=== PATIENT | female | born 1950 | race Caucasian/White ===

== ENCOUNTER 2016-12-15 05:46 | Day surgery (SDC) | payer MEDICARE ==
[2016-12-15] MEDS ORDERED: DIPRIVAN 200 MG/20 ML IV ONE (05:47)
[2016-12-15] MEDS ORDERED: Ketamine HCl 50 MG/ML IV ONE (05:47)
[2016-12-15] MEDS ORDERED: Lactated Ringers 1,000 ML IV SCH (06:30)
[2016-12-15 09:36] VITALS: BP 116/72; PULSE 77; O2SAT 98
--- NOTE | 2016-12-15 10:46 | OP ---
SURGERY DATE/TIME: 12/15/2016722 PREOPERATIVE DIAGNOSIS: History of colon polyps. POSTOPERATIVE DIAGNOSIS: Two colon polyps. PROCEDURE: Colonoscopy. SURGEON: Joaquin Ibarra M.D. ANESTHESIA: MAC by Keshawn Douglas CRNA. ESTIMATED BLOOD LOSS: Minimal. SPECIMENS: Two hot forceps polypectomies. DESCRIPTION OF PROCEDURE: After informed written consent was obtained, the patient was taken to the endoscopy suite. She underwent monitored anesthesia and digital rectal exam showed normal sphincter tone and no internal lesions. The scope was inserted into the rectum and sequentially the entire colonic mucosa was traversed. The level of cecum was reached and verified with direct visualization of ileocecal valve. There was a sessile polyp in the ascending colon which was grasped with forceps and cauterized with complete removal with good hemostasis. There were scattered diverticula throughout most of the length of the colon. There was another sessile polyp in the proximal sigmoid colon which was also removed with hot forceps in its entirety with good hemostasis and complete removal. The remainder of the exam was unremarkable. The scope was removed and the patient was transferred to the recovery room in excellent condition.
== END 2016-12-15 09:20 | disposition home or self-care (01) ==
LOC: SDC 05:46 → EDSTATUS 13:55
PROVIDERS: ATTEND Family Medicine
PROC: 0DBK8ZX Excision of Ascending Colon, Via Natural or Artificial Opening Endoscopic, Diagnostic (ICD-10-PCS; principal; 2016-12-15)
PROC: 0DBN8ZX Excision of Sigmoid Colon, Via Natural or Artificial Opening Endoscopic, Diagnostic (ICD-10-PCS; 2016-12-15)
DX: K63.5 Polyp of colon (principal); Z86.010 Personal history of colon polyps
CPT/HCPCS: 00810; 36415; J2704

== ENCOUNTER 2017-04-19 00:14 | Emergency (ER) | payer MEDICARE ==
[2017-04-19] MEDS ORDERED: PROVENTIL 2.5 MG/3 ML NEB IH ONE ×2 (00:18→00:43)
[2017-04-19] MEDS ORDERED: Ativan 2 MG/1 ML VIAL ONE ×2 (00:19→01:48)
[2017-04-19] MEDS ORDERED: Ativan 2 MG/1 ML VIAL IV ONE ×3 (00:20→02:52)
[2017-04-19] MEDS ORDERED: Lasix 40 MG/4 ML IV ONE (00:24)
[2017-04-19] MEDS ORDERED: Furosemide 100mg/10 ml Vial ONE (00:25)
--- NOTE | 2017-04-19 00:31 | ERPHSYRPT ---
- History of Present Illness Time Seen by Provider: 04/19/17 00:20 Source: patient, EMS Exam Limitations: no limitations Patient Subjective Stated Complaint: c/o SOA x 2 days Triage Nursing Assessment: pt c/o SOA, wheezes throughout, anxious. Physician History: 66 y/o female with history of COPD and CHF brought in by ambulance for worsening shortness of breath for the past 2 days. Pt arrives to the ER in severe respiratory distress. Pt was immediately placed on bibap which has helped. Pt says that she does not want to be intubated. Pt states that she has not taken her medications over the past couple of days, including lasix. Pt also admits to having substernal chest pain that started this evening, tightness sensation, with radiation to back and lasting for 5 minutes. Timing/Duration: day(s) Activities at Onset: none Severity of Dyspnea-Max: severe Severity of Dyspnea-Current: severe Possible Cause: frequent episodes Modifying Factors: Improves With: nothing Associated Symptoms: anxiety, chest pain/discomfort, productive cough International travel in last 2 weeks: No Allergies/Adverse Reactions: Tetanus Vaccines and Toxoid [Tetanus] Allergy (Severe, Verified 12/15/16 06:18) throat swelling Home Medications: Albuterol Sulfate Mdi [Proair Hfa MDI] 8.5 gm IH Q4HWA PRN 11/19/11 [ History] Albuterol/Ipratropium 3ml Neb* [DUONEB 0.5-3 MG/3 ml Neb] 3 ml IH Q4H [History] Atorvastatin Calcium [Lipitor] 40 mg PO HS 11/19/11 [History] Calcium Citrate/Vitamin D3 [Citracal + D Caplet] 2 each PO BID 11/19/11 [History ] Carvedilol 6.25 mg [Coreg 6.25 MG] 12.5 mg PO BID 11/19/11 [History] Furosemide 40 mg PO DAILY 11/19/13 [History] Gabapentin 300 mg PO TID 11/19/13 [History] Multivitamin [Multi-Vitamin Daily] 1 tab PO DAILY 11/19/13 [History] Losartan Potassium 50 mg [Cozaar 50 MG] 1 tab PO DAILY 08/17/15 [History] Magnesium Oxide 400 mg [Mag-Ox 400] 1 tab PO DAILY 08/17/15 [History] Tiotropium [place] [Spiriva] 18 mcg IH DAILY 08/18/15 [History] Biotin 10,000 mcg PO DAILY 12/08/16 [History] Cholecalciferol (Vitamin D3) [Vitamin D3] 5,000 unit PO DAILY 12/08/16 [History] PANTOPRAZOLE 40 mg Tablet [Protonix 40MG Tablet] 40 mg PO DAILY 12/08/16 [ History] Potassium Chloride 10 Meq Tab* [Klor Con 10 MEQ] 10 meq PO BID 12/08/16 [ History] Hydrocodone Bit/Homatropine [Hydrocodone Compound Syrup] 480 ml PO Q12H PRN PRN 12/15/16 [History] Nitroglycerin 2.5 mg [Nitro-Bid 2.5 mg] 2.5 mg PO DAILY 12/15/16 [History] Zoledronic Acid/Mannitol/Wate* [Reclast 5 MG/100 Ml Solution] 5 mg IV DAILY 12/15/16 [History] Cephalexin 500 mg PO TID 01/18/17 [History] Hx Tetanus, Diphtheria Vaccination/Date Given: Yes Hx Influenza Vaccination/Date Given: Yes (11/2013) Hx Pneumococcal Vaccination/Date Given: Yes (2013) Immunizations Up to Date: Yes - Review of Systems Constitutional: No Fever, No Chills Eyes: No Symptoms Ears, Nose, & Throat: No Symptoms Respiratory: Cough, Dyspnea, Dyspnea on Exertion (FIGUEREDO), Wheezing Cardiac: Chest Pain, Edema, No Syncope Abdominal/Gastrointestinal: No Abdominal Pain, No Nausea, No Vomiting, No Diarrhea Genitourinary Symptoms: No Dysuria Musculoskeletal: No Back Pain, No Neck Pain Skin: No Rash Neurological: No Dizziness, No Focal Weakness, No Sensory Changes Psychological: No Symptoms Endocrine: No Symptoms All Other Systems: Reviewed and Negative - Past Medical History Pertinent Past Medical History: Yes Neurological History: No Pertinent History ENT History: Cataracts Cardiac History: Angina, High Cholesterol, Hypertension Respiratory History: Asthma, COPD, Emphysema, Lung Cancer, Pneumonia Endocrine Medical History: No Pertinent History Musculoskeletal History: Arthritis, Fractures GI Medical History: GERD, Hemorrhoids, Polyps History: No Pertinent History Psycho-Social History: Anxiety Female Reproductive Disorders: No Pertinent History Other Medical History: frequent urination, bladder tie up x2 - Past Surgical History Past Surgical History: Yes Neuro Surgical History: No Pertinent History Cardiac: Cardiac Catheterization Respiratory: Lobectomy Gastrointestinal: Appendectomy Genitourinary: No Pertinent History Musculoskeletal: No Pertinent History Female Surgical History: Hysterectomy, Tubal Ligation Other Surgical History: states right upper lobe lung removed., right total knee replacement - Social History Smoking Status: Former smoker How long have you smoked: 40 years Exposure to second hand smoke: Yes Drug Use: none - Female History Hx Now: No - Nursing Vital Signs Nursing Vital Signs: Initial Vital Signs Temperature 97.5 F 04/19/17 00:33 Pulse Rate 120 H 04/19/17 00:33 Respiratory Rate 34 H 04/19/17 00:33 O2 Sat by Pulse Oximetry 9 L 04/19/17 00:33 Pain Scale Pain Intensity 4 - Physical Exam General Appearance: no apparent distress, alert Eye Exam: PERRL/EOMI Ears, Nose, Throat Exam: hearing grossly normal, normal ENT inspection Neck Exam: normal inspection, supple Respiratory Exam: respiratory distress, accessory muscle use, crackles/rales, wheezing Cardiovascular/Chest Exam: normal heart sounds, regular rate/rhythm Abdominal/Gastrointestinal Exam: soft, No tenderness, No distention, No mass Extremity Exam: non-tender, normal range of motion, normal inspection, no calf tenderness, no pedal edema Neurologic Exam: alert, oriented x 3, cooperative, 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 tested, sensation nml, No motor deficits Skin Exam: normal color, warm, No dry SpO2 Interpretation: normal SpO2: 99 - Course Nursing assessment & vital signs reviewed: Yes EKG Interpreted by Me: RATE (hr 105), Ischemic ST-T changes (ST depressions in leads V2, V3, V4) Ordered Tests: Active Orders 24 hr Category Date Time Status Commutator Repairer STAT Care 04/19/17 00:19 Active EKG-ER Only STAT Care 04/19/17 00:18 Active Herrera [Catheter-[place] Herrera] STAT Care 04/19/17 00:24 Active IV Insertion STAT Care 04/19/17 00:18 Active NPO (ED) STAT Care 04/19/17 00:18 Active CHEST 1 VIEW (PORTABLE) Stat Exams 04/19/17 00:16 Taken ARTERIAL BLOOD GASES Stat Lab 04/19/17 00:30 Completed BLOOD CULTURE Stat Lab 04/19/17 00:53 Received CBC W DIFF Stat Lab 04/19/17 00:25 Completed CMP Stat Lab 04/19/17 00:25 Completed Lactic Acid Stat Lab 04/19/17 00:30 Completed MAGNESIUM Stat Lab 04/19/17 00:25 Completed Manual Differential NC Stat Lab 04/19/17 00:25 Completed NT PRO BNP Stat Lab 04/19/17 00:25 Completed PROTIME WITH INR Stat Lab 04/19/17 00:25 Completed PTT Stat Lab 04/19/17 00:25 Completed TROPONIN Q3H Lab 04/19/17 00:25 Completed TROPONIN Q3H Lab 04/19/17 03:30 Ordered TROPONIN Q3H Lab 04/19/17 06:30 Ordered TROPONIN Q3H Lab 04/19/17 09:30 Ordered TROPONIN Q3H Lab 04/19/17 12:30 Ordered BiPap/CPAP Assessment STAT RT 04/19/17 00:18 Active Respiratory Nebulizer STAT RT 04/19/17 00:19 Completed Medication Summary Discontinued Medications Generic Name Dose Route Start Last Admin Trade Name Freq PRN Reason Stop Dose Admin Albuterol Sulfate 2.5 mg 04/19/17 00:18 04/19/17 00:45 Proventil 2.5 Mg/3 Ml Neb IH 04/19/17 00:19 2.5 mg STAT ONE Administration Albuterol Sulfate Confirm 04/19/17 00:43 Proventil 2.5 Mg/3 Ml Neb Administered 04/19/17 00:44 Dose 2.5 mg IH .STK-MED ONE Aspirin 324 mg 04/19/17 00:42 04/19/17 00:50 Baby Aspirin 81 Mg Chew PO 04/19/17 00:43 324 mg STAT ONE Administration Aspirin Confirm 04/19/17 00:52 Baby Aspirin 81 Mg Chew Administered 04/19/17 00:53 Dose 324 mg .ROUTE .STK-MED ONE Furosemide 60 mg 04/19/17 00:24 04/19/17 00:32 Lasix 40 Mg/4 Ml IV 04/19/17 00:25 60 mg STAT ONE Administration Furosemide Confirm 04/19/17 00:25 Furosemide 100mg/10 Ml Vial Administered 04/19/17 00:26 Dose 100 mg .ROUTE .STK-MED ONE Azithromycin 500 mg in 250 mls @ 250 mls/hr 04/19/17 01:28 04/19/17 01:51 Zithromax 500 Mg/ 250 Ml Nacl Premix IV 04/19/17 02:27 250 mls/hr STAT ONE Administration Azithromycin Confirm 04/19/17 01:35 Zithromax 500 Mg/ 250 Ml Nacl Premix Administered 04/19/17 01:36 Dose 500 mg in 250 mls @ ud IV .STK-MED ONE Lorazepam 0.5 mg 04/19/17 00:20 04/19/17 00:21 Ativan 2 Mg/1 Ml Vial IV 04/19/17 00:21 0.5 mg STAT ONE Administration Lorazepam Confirm 04/19/17 00:19 Ativan 2 Mg/1 Ml Vial Administered 04/19/17 00:20 Dose 2 mg .ROUTE .STK-MED ONE Lorazepam 0.5 mg 04/19/17 01:48 04/19/17 01:51 Ativan 2 Mg/1 Ml Vial IV 04/19/17 01:49 0.5 mg ONCE ONE Administration Lorazepam Confirm 04/19/17 01:48 Ativan 2 Mg/1 Ml Vial Administered 04/19/17 01:49 Dose 2 mg .ROUTE .STK-MED ONE Lorazepam 0.5 mg 04/19/17 02:52 04/19/17 02:56 Ativan 2 Mg/1 Ml Vial IV 04/19/17 02:53 0.5 mg STAT ONE Administration Lab/Rad Data: Laboratory Result Diagrams 04/19/17 00:25 04/19/17 00:25 Laboratory Results 04/19/17 04/19/17 04/19/17 Range/Units 00:58 00:30 00:25 WBC (4.0-10.5) K/mm3 RBC (4.1-5.4) M/mm3 Hgb (12.0-16.0) gm/dl Hct (35-47) % MCV (78-100) fl MCH (26-32) pg MCHC (32-36) g/dl RDW (11.5-14.0) % Plt Count (150-450) K/mm3 MPV (6-9.5) fl INR (0.8-3.0) APTT (25.3-37.0) SECONDS Puncture Site rr pCO2 54 H (35-45) mmHg pO2 379 H* (75-100) mmHg Base Excess 1.6 (-2.0-2.0) O2 Saturation 97.7 (94-100) g/dF ABG pH 7.33 L (7.35-7.45) ABG HCO3 28.5 H (22-28) ABG O2 Sat (Measured) 100.9 H (95-100) % Colt Test y A-a Gradient 267 a/A Ratio 0.59 Hemoglobin 12.5 Carboxyhemoglobin 1.9 (0.0-6.9) % THgb Methemoglobin 1.2 L (1.4-1.5) % Temperature 37.0 C POC O2 Flow Rate 100 % Vent Mode BiPAP Inspiratory BiPAP 11 Expiratory BiPAP 6 Sodium (136-145) mEq/L Potassium 3.4 L (3.5-5.1) mEq/L Chloride (98-107) mEq/L Carbon Dioxide (21-32) mEq/L Anion Gap (5-15) MEQ/L BUN (9-20) mg/dL Creatinine (0.55-1.30) mg/dl Estimated GFR ML/MIN Glucose (70-110) MG/DL Lactic Acid 0.7 (0.4-2.0) Calcium (8.5-10.1) mg/dL Magnesium (1.8-2.4) mg/dL Total Bilirubin (0.2-1.0) mg/dL AST (15-37) U/L ALT (12-78) U/L Alkaline Phosphatase (46-116) U/L Troponin I < 0.017 (0.000-0.056) ng/ml NT-Pro-B Natriuret Pep (0-125) pg/ml Serum Total Protein (6.4-8.2) gm/dL Albumin (3.4-5.0) g/dL Influenza Type A Ag NEGATIVE (NEGATIVE) Influenza Type B Ag NEGATIVE (NEGATIVE) RSV (PCR) POSITIVE (Negative) 04/19/17 04/19/17 04/19/17 Range/Units 00:25 00:25 00:25 WBC 21.4 H (4.0-10.5) K/mm3 RBC 4.19 (4.1-5.4) M/mm3 Hgb 12.4 (12.0-16.0) gm/dl Hct 38.5 (35-47) % MCV 91.9 (78-100) fl MCH 29.6 (26-32) pg MCHC 32.2 (32-36) g/dl RDW 13.6 (11.5-14.0) % Plt Count 317 (150-450) K/mm3 MPV 11.3 H (6-9.5) fl INR 1.24 (0.8-3.0) APTT 27.3 (25.3-37.0) SECONDS Puncture Site pCO2 (35-45) mmHg pO2 (75-100) mmHg Base Excess (-2.0-2.0) O2 Saturation (94-100) g/dF ABG pH (7.35-7.45) ABG HCO3 (22-28) ABG O2 Sat (Measured) (95-100) % Colt Test A-a Gradient a/A Ratio Hemoglobin Carboxyhemoglobin (0.0-6.9) % THgb Methemoglobin (1.4-1.5) % Temperature C POC O2 Flow Rate % Vent Mode Inspiratory BiPAP Expiratory BiPAP Sodium 145 (136-145) mEq/L Potassium 4.1 (3.5-5.1) mEq/L Chloride 105 (98-107) mEq/L Carbon Dioxide 28.8 (21-32) mEq/L Anion Gap 15.3 H (5-15) MEQ/L BUN 13 (9-20) mg/dL Creatinine 0.64 (0.55-1.30) mg/dl Estimated GFR > 60 ML/MIN Glucose 149 H (70-110) MG/DL Lactic Acid (0.4-2.0) Calcium 9.1 (8.5-10.1) mg/dL Magnesium 1.8 (1.8-2.4) mg/dL Total Bilirubin 1.10 H (0.2-1.0) mg/dL AST 22 (15-37) U/L ALT 26 (12-78) U/L Alkaline Phosphatase 85 (46-116) U/L Troponin I (0.000-0.056) ng/ml NT-Pro-B Natriuret Pep 316 H (0-125) pg/ml Serum Total Protein 8.0 (6.4-8.2) gm/dL Albumin 3.9 (3.4-5.0) g/dL Influenza Type A Ag (NEGATIVE) Influenza Type B Ag (NEGATIVE) RSV (PCR) (Negative) - Progress Progress: improved Air Movement: fair Progress Note: 04/19/17 02:43 The CXR shows increase vascular congestion. The patient has shown significant improvement since arriving to the ER after being placed on bipap. Pt was already given a dose of solumedrol 125mg in route and has received 3 doses of duonebs as well as lasix 60mg with herrera catheter insertion. Pt is RSV positive. Influenza is negative. Pt was started on azithromycin. Each time the mask is taken off, pt starts to decompensate. Pt also has ST depressions in leads V2-V4 but the first troponin was negative. Pt was given a dose of ASA. We don't have ICU staffing and the patient will require a higher level of care. Pt has agreed to be transferred to [facility] and will be transferred under the care of Dr Allen. 04/19/17 02:53 - Departure Time of Disposition: 02:52 Departure Disposition: Transfer Clinical Impression: Respiratory distress COPD (chronic obstructive pulmonary disease) Qualifiers: COPD type: unspecified COPD Qualified Code(s): J44.9 - Chronic obstructive pulmonary disease, unspecified CHF (congestive heart failure) Qualifiers: Heart failure type: systolic Heart failure chronicity: acute on chronic Qualified Code(s): I50.23 - Acute on chronic systolic (congestive) heart failure Condition: Critical Critical Care Time: Yes Critical Care Time(excluding separately billable procedures): 75-104 minutes Referrals: RIMA HAGAN [Primary Care Provider] - Instructions: Heart Failure, Chronic Obstructive Pulmonary Disease
[2017-04-19 00:37] LABS: A-aADO2 267; ABG HEMOGLOBIN 12.5; ABG POTASSIUM 3.4 (3.5-5.1); ARTERIAL BLD GAS O2 SATURATION 100.9 % (95-100); ARTERIAL BLOOD GAS BASE EXCESS 1.6 (-2.0-2.0); ARTERIAL BLOOD GAS FIO2 100 %; ARTERIAL BLOOD GAS PCO2 54 mmHg (35-45); ARTERIAL BLOOD GAS PO2 379 mmHg (75-100); ARTERIAL BLOOD GAS VENT MODE BiPAP; ARTERIAL BLOOD GAS pH 7.33 (7.35-7.45); CARBOXYHEMOGLOBIN 1.9 % THgb (0.0-6.9); HCO3- 28.5 (22-28); HGB O2 SAT 97.7 g/dF (94-100); Lactic Acid 0.7 (0.4-2.0); Methhemoglobin 1.2 % (1.4-1.5); paO2 pAO1 0.59
[2017-04-19 00:39] LABS: ABG SITE rr; ALLEN TEST OK? y
[2017-04-19] MEDS ORDERED: BABY ASPIRIN 81 MG CHEW PO ONE (00:42)
[2017-04-19] MEDS ORDERED: BABY ASPIRIN 81 MG CHEW ONE (00:52)
[2017-04-19 01:04] LABS: Hematocrit 38.5 % (35-47); Hemoglobin 12.4 gm/dl (12.0-16.0); Mean Cell Volume 91.9 fl (78-100); Mean Corpuscular Hemoglobin 29.6 pg (26-32); Mean Corpuscular Hgb Concent. 32.2 g/dl (32-36); Mean Platelet Volume 11.3 fl (6-9.5); Platelet Count 317 K/mm3 (150-450); Red Blood Count 4.19 M/mm3 (4.1-5.4); Red Cell Distribution Width 13.6 % (11.5-14.0); White Blood Count 21.4 K/mm3 (4.0-10.5)
[2017-04-19 01:20] LABS: INR 1.24 (0.8-3.0)
[2017-04-19 01:23] LABS: PTT 27.3 SECONDS (25.3-37.0)
[2017-04-19] MEDS ORDERED: Zithromax 500 MG/ 250 ML NaCl Premix 500 MG/250 ML IVPB IV ONE ×2 (01:28→01:35)
[2017-04-19 01:39] LABS: ALBUMIN 3.9 g/dL (3.4-5.0); ALKALINE PHOSPHATASE 85 U/L (46-116); ANION GAP 15.3 MEQ/L (5-15); BLOOD UREA NITROGEN 13 mg/dL (9-20); CHLORIDE 105 mEq/L (98-107); Calcium 9.1 mg/dL (8.5-10.1); Carbon Dioxide 28.8 mEq/L (21-32); Creatinine 1 0.64 mg/dl (0.55-1.30); Glucose 149 MG/DL (70-110); NT PRO BNP 316 pg/ml (0-125); Potassium 4.1 mEq/L (3.5-5.1); SGOT/AST 22 U/L (15-37); SGPT/ALT 26 U/L (12-78); SODIUM 145 mEq/L (136-145)
[2017-04-19 01:44] LABS: INFLUENZA A NEGATIVE (NEGATIVE); INFLUENZA B NEGATIVE (NEGATIVE)
[2017-04-19 01:46] LABS: RESPIRATORY SYNCTIAL VIRUS POSITIVE (Negative)
[2017-04-19 03:23] VITALS: BP 111/82; PULSE 112; O2SAT 95
[2017-04-19 07:12] LABS: Eosinophil 1 % (0.00-3.0); Lymphocytes 32 % (24-44); Monocyte 7 % (0.0-12.0); Neutrophils 60 % (36.0-66.0); Total Cells Counted 100
[2017-04-19 07:23] LABS: Platelet Estimate NORMAL (NORMAL); Toxic Granulation 1+
--- NOTE | 2017-04-19 08:38 | XRAY ---
Indication: Short of breath. History right lung cancer. Comparison: August 17, 2015. Portable chest unchanged with stable right hemithorax postsurgical changes and right hilar fullness. Left lung remains clear. Heart is not enlarged. Bony thorax intact again with mild osteopenia and degenerative changes. Impression: Stable nonacute chest with chronic features.
== END 2017-04-19 03:50 | disposition short-term general hospital (02) ==
LOC: ED 00:14
DX: R06.03 Acute respiratory distress (principal); J44.9 Chronic obstructive pulmonary disease, unspecified; I50.23 Acute on chronic systolic (congestive) heart failure; I10 Essential (primary) hypertension; E78.00 Pure hypercholesterolemia, unspecified; J45.909 Unspecified asthma, uncomplicated; Z85.118 Personal history of other malignant neoplasm of bronchus and lung; M19.90 Unspecified osteoarthritis, unspecified site; K21.9 Gastro-esophageal reflux disease without esophagitis; Z87.891 Personal history of nicotine dependence; Z79.899 Other long term (current) drug therapy; R07.89 Other chest pain
CPT/HCPCS: 36415; 36600; 51702; 71045; 80053; 82375; 82803; 83605; 83735; 83880; 84484; 85025; 85610; 85730; 87040; 87631; 93005; 93041; 94002; 94640; 96360; 96361; 96365; 99291; 99292; J0456; J1940; J2060; A9270-GY

== ENCOUNTER 2022-10-09 15:54 | Inpatient (IN) | payer MEDICARE ==
[2022-10-09] MEDS ORDERED: solu-MEDROL 125 MG, Sterile H2O 10 ml 2 ML IV ONE ×2 (16:04)
[2022-10-09] MEDS ORDERED: DUONEB 0.5-3 MG/3 ml Neb IH ONE ×3 (16:11→23:38)
[2022-10-09 16:20] LABS: Absolute Neutrophil Ct (ANC) 9.03 x10^3/uL (1.4-6.9); BASOPHIL % 0.4 % (0.0-0.4); Basophil (Absolute #) 0.04 x10^3/uL (0-0.4); Eosinophil % 0.1 % (0.00-5.0); Eosinophil (Absolute #) 0.01 x10^3/uL (0-0.5); Hemoglobin 11.8 g/dL (12.0-16.0); IMMATURE GRAN # 0.09 x10^3u/L (0.00-0.03); IMMATURE GRAN % 0.9 % (0.00-0.4); Lymphocyte (Absolute #) 0.66 x10^3/uL (1.0-4.6); Lymphocytes % 6.5 % (24.0-44.0); Mean Cell Volume 90.9 fL (78-100); Mean Corpuscular Hgb Concent. 31.9 g/dL (32-36); Mean Platelet Volume 10.2 fL (7.5-11.0); Monocyte (Absolute #) 0.33 x10^3/uL (0.0-1.3); Monocytes % 3.2 % (0.0-12.0); Neutrophil % 88.9 % (36.0-66.0); Platelet Count 279 x10^3/uL (150-450); Red Blood Count 4.07 x10^6/uL (4.1-5.4); Red Cell Distribution Width 14.3 % (11.5-14.0); White Blood Count 10.2 x10^3/uL (4.0-10.5)
[2022-10-09 16:36] LABS: INR 1.05 (0.8-3.0); PROTIME 11.4 SECONDS (9.4-12.5); PTT 28.2 SECONDS (25.1-36.5)
--- NOTE | 2022-10-09 16:43 | ERPHSYRPT ---
- History of Present Illness Source: patient, EMS Exam Limitations: no limitations Patient Subjective Stated Complaint: pt reports shortness of breath beginning last evening, reports using her home nebulizer and inhalers without any relief Triage Nursing Assessment: pt is aox3, short of breath upon arrival, pt with audible wheezes and wet cough appreciated, afebrile, radial pulses strong and equal, cap refill < 3 seconds, pt skin pink warm dry. edema noted to the BLE, skin is red, shiny and tight. skin is intact at this time. Physician History: 72 yo WF who is 4L O2 dependent presents w dyspnea since last PM which occurs at rest and exertion. Pt had some sub-sternal chest pain last night which was relieved by 2 SL NTG. She denies current chest pain/cough/coryza/fever/nausea/vomiting/diarrhea/melena/hematochezia. Pt has 2+ pre-tibial edema w mild erythema which pt states is chronic. Timing/Duration: other (Last night) Activities at Onset: rest Severity of Dyspnea-Max: moderate Severity of Dyspnea-Current: moderate Possible Cause: frequent episodes Modifying Factors: Improves With: activity, exertion Associated Symptoms: denies symptoms, edema Allergies/Adverse Reactions: Tetanus Vaccines and Toxoid [Tetanus] Allergy (Severe, Verified 10/09/22 16:08) throat swelling Home Medications: Albuterol Sulfate Mdi [ALBUTEROL/Proair Hfa MDI] 8.5 gm IH Q4HWA PRN 11/19/11 [History] Albuterol/Ipratropium 3ml Neb* [DUONEB 0.5-3 MG/3 ml Neb] 3 ml IH Q4H 11/19/11 [History] Atorvastatin Calcium [Lipitor] 40 mg PO HS 11/19/11 [History] Calcium Citrate/Vitamin D3 [Citracal + D Caplet] 2 each PO BID 11/19/11 [History] Multivitamin [Multi-Vitamin Daily] 1 tab PO DAILY 11/19/13 [History] Tiotropium Bandy [Spiriva] 18 mcg IH DAILY 08/18/15 [History] Cholecalciferol (Vitamin D3) [Vitamin D3] 50 mg PO DAILY 12/08/16 [History] Potassium Chloride Tab* [Klor Con] 10 meq PO BID 12/08/16 [History] Nitroglycerin Sr [Nitro-Bid ] 2.5 mg PO DAILY 12/15/16 [History] Aspirin [Aspirin EC] 81 mg PO DAILY 01/20/18 [History] Zoledronic Acid/Mannitol&Water [Reclast 5 mg/100 ml Solution] 5 mg IV UD [History] Ascorbic Acid [Vitamin C] 1,000 mg PO DAILY 05/04/21 [History] Biotin 10,000 mcg PO DAILY 05/04/21 [History] Furosemide 80 mg PO BID 05/04/21 [History] Magnesium Oxide [Magnesium] 250 mg PO DAILY 05/04/21 [History] Prednisone 10 mg [Deltasone 10 mg] 10 mg PO DAILY 05/04/21 [History] Hx Tetanus, Diphtheria Vaccination/Date Given: Yes Hx Influenza Vaccination/Date Given: Yes (11/2013) Hx Pneumococcal Vaccination/Date Given: Yes (2013) Immunizations Up to Date: Yes Travel Risk - International Travel Have you traveled outside of the country in past 3 weeks: No - Coronavirus Screening Are you exhibiting any of the following symptoms?: No Close contact with a COVID-19 positive Pt in past 14-21 Days: No - Vaccine Status Have you recieved a Covid-19 vaccination: Yes Biomass Technician: Unknown - Vaccination Dates Dates if Unknown: UNK - Review of Systems Constitutional: No Symptoms, Malaise Eyes: No Symptoms Ears, Nose, & Throat: No Symptoms Respiratory: No Symptoms, Dyspnea, Dyspnea on Exertion (FIGUEREDO), Wheezing Cardiac: No Symptoms, Chest Pain Abdominal/Gastrointestinal: No Symptoms Genitourinary Symptoms: No Symptoms Musculoskeletal: No Symptoms Skin: No Symptoms Neurological: No Symptoms Psychological: No Symptoms Endocrine: No Symptoms Hematologic/Lymphatic: No Symptoms Immunological/Allergic: No Symptoms - Past Medical History Pertinent Past Medical History: Yes Neurological History: No Pertinent History ENT History: Cataracts Cardiac History: Angina, High Cholesterol, Hypertension Respiratory History: COPD, Lung Cancer Endocrine Medical History: No Pertinent History Musculoskeletal History: Degenerative Disk Disease, Osteoporosis GI Medical History: GERD History: No Pertinent History Psycho-Social History: Anxiety Female Reproductive Disorders: No Pertinent History Other Medical History: Pt denies heart disease but she does have episodes of angina and follows Dr. massey every 3 to 6 months. Pt reports negative stress and that chest pain is a result of heart shift after right upper lobectomy - Past Surgical History Past Surgical History: Yes Neuro Surgical History: No Pertinent History Cardiac: No Pertinent History Respiratory: Lobectomy Gastrointestinal: Appendectomy Genitourinary: No Pertinent History Musculoskeletal: Orthopedic Surgery Female Surgical History: Hysterectomy, Tubal Ligation Other Surgical History: Right upper lobectomy. Right thumb reconstructive surgery. right hand surgery. Right knee replacement. left elbow bursa surgery, back surgery - Social History Smoking Status: Former smoker How long have you smoked: 40 years Exposure to second hand smoke: No Drug Use: none Patient Lives Alone: No Significant Family History: no pertinent family hx - Nursing Vital Signs Nursing Vital Signs: Initial Vital Signs Temperature 98.0 F 10/09/22 15:57 Pulse Rate 98 H 10/09/22 15:57 Respiratory Rate 26 H 10/09/22 15:57 Blood Pressure 146/99 10/09/22 15:57 O2 Sat by Pulse Oximetry 96 10/09/22 15:57 Pain Scale Pain Intensity 5 Hypertensive/Tachypneic - Physical Exam General Appearance: mild distress, anxiety Eye Exam: PERRL/EOMI, eyes nml inspection Ears, Nose, Throat Exam: hearing grossly normal, normal ENT inspection, normal pharynx Neck Exam: normal inspection, non-tender, supple, full range of motion, No Brudzinski, No Kernig's, No meningismus Respiratory Exam: prolonged expirations, wheezing (Wheezing in all lung mir) Cardiovascular/Chest Exam: regular rate/rhythm, normal peripheral pulses, No murmur Abdominal/Gastrointestinal Exam: soft, normal bowel sounds Extremity Exam: swelling (2+ B LE edema w mild B pre-tibial erythema) Peripheral Pulses Exam: carotid (R): 2+, carotid (L): 2+ Neurologic Exam: alert, oriented x 3, cooperative, roller gold leaf II-XII nml as tested, normal mood/affect, sensation nml Skin Exam: normal color, warm, dry Lymphatic Exam: No adenopathy SpO2 Interpretation: normal SpO2: 96 O2 Delivery: Nasal Cannula (4L O2 NC) - Course Nursing assessment & vital signs reviewed: Yes EKG Interpreted by Me: RATE (NSR/Rate 92/Prolonged QTc/RBBB/Artifact/Nonspecific ST segment changes) - Radiology Exams Chest X-ray Interpretation: Interpreted by me (No significant change) - CT Exams Chest CT Interpretation: Tele-radiologist Report (COPD/LLL infiltrate) Ordered Tests: Active Orders 24 hr Category Date Time Status Bedrest ROUTINE Activity 10/09/22 19:19 Active Call Admit Doctor for Orders ON ADMISSION Care 10/09/22 19:16 Active [facility] Tra[employer] STAT Care 10/09/22 16:13 Active Code Status Order ROUTINE Care 10/09/22 19:16 Active EKG-ER Only STAT Care 10/09/22 16:04 Active IV Insertion STAT Care 10/09/22 16:13 Active Oxygen-ED Only Nasal Cannula 4 lpm Care 10/09/22 16:[address] in Observation ROUTINE Care 10/09/22 19:16 Active Telemetry q6h Care 10/09/22 19:16 Active Heart-Healthy Diet Diet 10/10/22 Breakfast Active CHEST 1 VIEW (PORTABLE) Stat Exams 10/09/22 16:05 Taken CHEST WITHOUT CONTRAST [CT] Stat Exams 10/09/22 17:30 Completed BLOOD CULTURE Stat Lab 10/09/22 16:20 Received CBC W DIFF Stat Lab 10/09/22 16:10 Completed CMP Stat Lab 10/09/22 16:10 Completed Lactic Acid Stat Lab 10/09/22 16:35 Completed NT PRO BNPII Stat Lab 10/09/22 16:10 Completed PROTIME WITH INR Stat Lab 10/09/22 16:10 Completed PTT Stat Lab 10/09/22 16:10 Completed TROPONIN Q4H Lab 10/09/22 16:10 Completed TROPONIN Q4H Lab 10/09/22 20:15 Ordered TROPONIN Q4H Lab 10/10/22 00:15 Ordered Oxygen Nasal Cannula 4 lpm RT 10/09/22 19:16 Active Respiratory Therapy Assessment DAILY RT 10/09/22 16:38 Active Respiratory Therapy Consult ONCE RT 10/09/22 19:16 Active Transfer Order Routine Transfer 10/09/22 Ordered Medication Summary Discontinued Medications Generic Name Dose Route Start Last Admin Trade Name Freq PRN Reason Stop Dose Admin Albuterol Sulfate 5 mg 10/09/22 19:24 Albuterol Sulfate 2.5 Mg/3 Ml Neb IH 10/09/22 19:25 STAT ONE Albuterol Sulfate Confirm 10/09/22 19:42 Albuterol Sulfate 2.5 Mg/3 Ml Neb Administered 10/09/22 19:43 Dose 5 mg IH .STK-MED ONE Albuterol/Ipratropium 3 ml 10/09/22 16:11 10/09/22 16:21 Ipratropium/Albuterol Sulfate 3 Ml Ampul.Neb IH 10/09/22 16:12 3 ml STAT ONE Administration Albuterol/Ipratropium Confirm 10/09/22 16:16 Ipratropium/Albuterol Sulfate 3 Ml Ampul.Neb Administered 10/09/22 16:17 Dose 3 ml IH .STK-MED ONE Methylprednisolone Sodium 0 mg 10/09/22 16:04 10/09/22 16:59 Succinate 125 mg/ Sterile IV 10/09/22 16:05 125 mg Water 2 ml STAT ONE Administration Methylprednisolone Sodium Succinate Confirm 10/09/22 16:49 Methylprednis Sod Succ 125 Mg/2 Ml Vial Administered 10/09/22 16:50 Dose 125 mg .ROUTE .STK-MED ONE Sterile Water Confirm 10/09/22 16:49 Water For Injection,Sterile 10 Ml Vial Administered 10/09/22 16:50 Dose 10 ml IJ .STK-MED ONE Lab/Rad Data: Laboratory Result Diagrams 10/09/22 16:10 10/09/22 16:10 Laboratory Results 10/09/22 10/09/22 10/09/22 Range/Units 16:35 16:20 16:10 WBC (4.0-10.5) x10^3/uL RBC (4.1-5.4) x10^6/uL Hgb (12.0-16.0) g/dL Hct (35-47) % MCV (78-100) fL MCH (26-32) pg MCHC (32-36) g/dL RDW (11.5-14.0) % Plt Count (150-450) x10^3/uL MPV (7.5-11.0) fL Gran % (36.0-66.0) % Immature Gran % (Auto) (0.00-0.4) % Nucleat RBC Rel Count (0.00-0.1) % Eos # (Auto) (0-0.5) x10^3/uL Immature Gran # (Auto) (0.00-0.03) x10^3u/L Absolute Lymphs (auto) (1.0-4.6) x10^3/uL Absolute Monos (auto) (0.0-1.3) x10^3/uL Absolute Nucleated RBC (0.00-0.01) x10^3u/L Lymphocytes % (24.0-44.0) % Monocytes % (0.0-12.0) % Eosinophils % (0.00-5.0) % Basophils % (0.0-0.4) % Absolute Granulocytes (1.4-6.9) x10^3/uL Basophils # (0-0.4) x10^3/uL PT (9.4-12.5) SECONDS INR (0.8-3.0) APTT (25.1-36.5) SECONDS Sodium (137-145) mmol/L Potassium (3.5-5.1) mmol/L Chloride (98-107) mmol/L Carbon Dioxide (22-30) mmol/L Anion Gap (5-15) MEQ/L BUN (7-17) mg/dL Creatinine (0.52-1.04) mg/dL Estimated GFR ML/MIN Glucose (74-106) mg/dL Lactic Acid 1.2 (0.4-2.0) Calcium (8.4-10.2) mg/dL Total Bilirubin (0.2-1.3) mg/dL AST (14-36) U/L ALT (0-35) U/L Alkaline Phosphatase (38-126) U/L Troponin I < 0.012 (0.000-0.034) ng/mL NT-Pro-B Natriuret Pep (<300) pg/mL Serum Total Protein (6.3-8.2) g/dL Albumin (3.5-5.0) g/dL Influenza Type A Ag NEGATIVE (NEGATIVE) Influenza Type B Ag NEGATIVE (NEGATIVE) RSV (PCR) NEGATIVE (NEGATIVE) SARS-CoV-2 (PCR) NEGATIVE (NEGATIVE) 10/09/22 10/09/22 10/09/22 Range/Units 16:10 16:10 16:10 WBC 10.2 (4.0-10.5) x10^3/uL RBC 4.07 L (4.1-5.4) x10^6/uL Hgb 11.8 L (12.0-16.0) g/dL Hct 37.0 (35-47) % MCV 90.9 (78-100) fL MCH 29.0 (26-32) pg MCHC 31.9 L (32-36) g/dL RDW 14.3 H (11.5-14.0) % Plt Count 279 (150-450) x10^3/uL MPV 10.2 (7.5-11.0) fL Gran % 88.9 H (36.0-66.0) % Immature Gran % (Auto) 0.9 H (0.00-0.4) % Nucleat RBC Rel Count 0.0 (0.00-0.1) % Eos # (Auto) 0.01 (0-0.5) x10^3/uL Immature Gran # (Auto) 0.09 H (0.00-0.03) x10^3u/L Absolute Lymphs (auto) 0.66 L (1.0-4.6) x10^3/uL Absolute Monos (auto) 0.33 (0.0-1.3) x10^3/uL Absolute Nucleated RBC 0.00 (0.00-0.01) x10^3u/L Lymphocytes % 6.5 L (24.0-44.0) % Monocytes % 3.2 (0.0-12.0) % Eosinophils % 0.1 (0.00-5.0) % Basophils % 0.4 (0.0-0.4) % Absolute Granulocytes 9.03 H (1.4-6.9) x10^3/uL Basophils # 0.04 (0-0.4) x10^3/uL PT 11.4 (9.4-12.5) SECONDS INR 1.05 (0.8-3.0) APTT 28.2 (25.1-36.5) SECONDS Sodium 133 L (137-145) mmol/L Potassium 4.2 (3.5-5.1) mmol/L Chloride 89 L (98-107) mmol/L Carbon Dioxide 38 H (22-30) mmol/L Anion Gap 10.6 (5-15) MEQ/L BUN 22 H (7-17) mg/dL Creatinine 0.73 (0.52-1.04) mg/dL Estimated GFR > 60.0 ML/MIN Glucose 144 H (74-106) mg/dL Lactic Acid (0.4-2.0) Calcium 9.3 (8.4-10.2) mg/dL Total Bilirubin 1.70 H (0.2-1.3) mg/dL AST 45 H (14-36) U/L ALT 28 (0-35) U/L Alkaline Phosphatase 96 (38-126) U/L Troponin I (0.000-0.034) ng/mL NT-Pro-B Natriuret Pep 1080 (<300) pg/mL Serum Total Protein 7.0 (6.3-8.2) g/dL Albumin 4.2 (3.5-5.0) g/dL Influenza Type A Ag (NEGATIVE) Influenza Type B Ag (NEGATIVE) RSV (PCR) (NEGATIVE) SARS-CoV-2 (PCR) (NEGATIVE) - Progress Progress Note: 10/09/22 19:20 Nursing note and vital signs reviewed No food or housing insecurities noted Additional history per EMS Duoneb x1/125mg IV Solumedrol w improvement All lab results reviewed and shared w pt CXR read in ER and result shared w pt CT chest result pending at time of Obs admit Obs per Dr. Terrence coy CT chest result pending. Wants to hold antibiotics at this time. Pt is a full code 10/09/22 19:26 10/09/22 19:48 CT resulted before admit/LLL infiltrate/blood cultures already done/1gm IV rocephin Counseled pt/family regarding: lab results, diagnosis, rad results Medical Desision Making - Independent Historian Additional History obtained from: EMS - Discussion of managment Care discussed with:: hospitalist Reviewed:: Test results, Need for additional workup Agreed on:: place in obs Will see patient: in hospital - Diagnostic Testing Diagnostic test were ordered, analyzed, and reviewed by me: Yes Radiological Interpretation: Interpreted by me - Risk of complications The pt has a high risk of morbidity or mortality based on: Drug therapy requiring intensive monitoring for toxicity - Departure Departure Disposition: Observation Clinical Impression: Acute exacerbation of chronic obstructive airways disease, Pneumonia Condition: Stable Critical Care Time: Yes Critical Care Time(excluding separately billable procedures): Critical 30-74 mins Referrals: ALISA ROMO [Primary Care Provider] - Follow up/PCP as directed Instructions: Exacerbation of COPD (DC)
[2022-10-09] MEDS ORDERED: Sterile H2O 10 ml IJ ONE (16:49)
[2022-10-09] MEDS ORDERED: solu-MEDROL ONE (16:49)
[2022-10-09 16:56] LABS: ALBUMIN 4.2 g/dL (3.5-5.0); ALKALINE PHOSPHATASE 96 U/L (38-126); ANION GAP 10.6 MEQ/L (5-15); BLOOD UREA NITROGEN 22 mg/dL (7-17); CHLORIDE 89 mmol/L (98-107); Calcium 9.3 mg/dL (8.4-10.2); Carbon Dioxide 38 mmol/L (22-30); Creatinine 1 0.73 mg/dL (0.52-1.04); EST GLOMERULAR FILTRATION RATE > 60.0 ML/MIN; Glucose 144 mg/dL (74-106); NT PRO BNPII 1080 pg/mL (<300); Potassium 4.2 mmol/L (3.5-5.1); SGOT/AST 45 U/L (14-36); SGPT/ALT 28 U/L (0-35); SODIUM 133 mmol/L (137-145)
[2022-10-09 17:10] LABS: INFLUENZA A NEGATIVE (NEGATIVE); INFLUENZA B NEGATIVE (NEGATIVE); RESPIRATORY SYNCTIAL VIRUS NEGATIVE (NEGATIVE); SARS-CoV-2 Xpert Express NEGATIVE (NEGATIVE)
[2022-10-09] MEDS ORDERED: PROVENTIL 2.5 MG/3 ML NEB IH ONE ×4 (19:24→20:57)
--- NOTE | 2022-10-09 19:32 | XRAY ---
CLINICAL HISTORY:Abnormal CXR COMPARISON:None. TECHNIQUE:Contiguous 5.[address] images of the chest were acquired without the administration of intravenous contrast. Coronal and sagittal reconstructions were obtained. FINDINGS: The visualized thyroid gland appears unremarkable. No pathologically enlarged axillary or mediastinal lymph nodes. Limited evaluation of the hilar lymph nodes due to lack of IV contrast. Atherosclerotic calcification of the coronary vessels, aortic arch, and abdominal aorta. Tortuous thoracic aorta. Both lungs demonstrate emphysematous changes. There is hyperinflation of the left lung with trans mediastinal herniation. Bilateral lower lobes show mild centriacinar emphysema. Small focal consolidation is seen in the left lower lobe SE 3 image #31. The right upper lobe appears small and unremarkable. No solitary pulmonary nodules were seen. Included section of the upper abdomen demonstrates unremarkable liver gallbladder spleen, pancreas, adrenals, and kidneys. Visualized osseous structures show marked degenerative changes of the thoracic spine with kyphotic deformity and compression fracture with reduced vertical height of T6, T7, T9, T11, and L1 vertebra. IMPRESSION: 1. Emphysematous lungs with mild centriacinar emphysema in both lower lobes. There is hyperinflation of the left lung with trans mediastinal herniation. 2. Small focal consolidation is seen in the left lower lobe SE 3 image #31. 3. No soliatry pulmonary nodule or definite lymphadenopathy to suggest metastases. 4. 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 Electronically Signed by: Todd Medellin MD. (10/09/2022 18:30:37 PARAPROFESSIONAL EDUCATION ASSISTANT)
[2022-10-09] MEDS ORDERED: ROCEPHIN 1 Gm-D5w 50 ml Bag** 1 G/50 ML IVPB IV STA (19:47)
[2022-10-09] MEDS ORDERED: ROCEPHIN 1 Gm-D5w 50 ml Bag** 1 G/50 ML IVPB IV ONE (19:50)
--- NOTE | 2022-10-09 20:56 | XRAY ---
Indication: Short of breath. Comparison: July 06, 2022 Portable apical lordotic again demonstrates COPD, mild bibasilar subsegmental atelectasis/scarring, scattered right lung suture material/surgical clips, and small benign left breast calcification. No focal infiltrate, consolidation, or large effusion. Heart not enlarged. Bony thorax intact with osteopenia, moderate degenerative changes, old right rib fractures, and mid thoracic vertebroplasty. Impression: Nonacute chest with chronic features.
[2022-10-09] MEDS ORDERED: LIPITOR 40MG PO SCH (22:00)
[2022-10-09] MEDS ORDERED: NON-FORMULARY ITEM (Furosemide [Furosemide] 80 MG Tablet) PO SCH (22:00)
--- NOTE | 2022-10-09 22:12 | PCM.HP ---
History of Present Illness - Chief Complaint Chief Complaint: copd exacerbation History of Present Illness: is a 72 year old female. She has a medical history significant for COPD, HTN, CHF who presents with SOB, wheezing and cough. Denies fevers, cough with sputum and chest pain. She has baseline hypoxia and uses 4 liters NC at home. In the room she already felt better after breathing treatments in the ED + solumedrol. No other complaints. - Review of Systems Eyes: No Symptoms Ears, Nose, & Throat: No Symptoms Respiratory: Short Of Breath, Wheezing Cardiac: No Symptoms Abdominal/Gastrointestinal: No Symptoms Genitourinary Symptoms: No Symptoms Musculoskeletal: No Symptoms Skin: No Symptoms Neurological: No Symptoms Psychological: No Symptoms Endocrine: No Symptoms Hematologic/Lymphatic: No Symptoms Immunological/Allergic: No Symptoms All Other Systems: Reviewed and Negative Medications & Allergies Home Medications: Home Medication List Albuterol Sulfate Mdi [ALBUTEROL/Proair Hfa MDI] 8.5 gm IH Q4HWA PRN 11/19/11 [History Confirmed 10/09/22] Albuterol/Ipratropium 3ml Neb* [DUONEB 0.5-3 MG/3 ml Neb] 3 ml IH Q4H 11/19/11 [History Confirmed 10/09/22] Atorvastatin Calcium [Lipitor] 40 mg PO HS 11/19/11 [History Confirmed 10/09/22] Calcium Citrate/Vitamin D3 [Citracal + D Caplet] 2 each PO BID 11/19/11 [History Confirmed 10/09/22] Multivitamin [Multi-Vitamin Daily] 1 tab PO DAILY 11/19/13 [History Confirmed 10/09/22] Tiotropium [place] [Spiriva] 18 mcg IH DAILY 08/18/15 [History Confirmed 10/09/22] Cholecalciferol (Vitamin D3) [Vitamin D3] 50 mg PO DAILY 12/08/16 [History Confirmed 10/09/22] Potassium Chloride Tab* [Klor Con] 10 meq PO BID 12/08/16 [History Confirmed 10/09/22] Nitroglycerin Sr [Nitro-Bid ] 2.5 mg PO DAILY 12/15/16 [History Confirmed 10/09/22] Aspirin [Aspirin EC] 81 mg PO DAILY 01/20/18 [History Confirmed 10/09/22] Zoledronic Acid/Mannitol&Water [Reclast 5 mg/100 ml Solution] 5 mg IV UD 03/17/20 [History Confirmed 10/09/22] Ascorbic Acid [Vitamin C] 1,000 mg PO DAILY 05/04/21 [History Confirmed 10/09/22] Biotin 10,000 mcg PO DAILY 05/04/21 [History] Furosemide 80 mg PO BID 05/04/21 [History Confirmed 10/09/22] Magnesium Oxide [Magnesium] 250 mg PO DAILY 05/04/21 [History Confirmed 10/09/22] Prednisone 10 mg [Deltasone 10 mg] 10 mg PO DAILY 05/04/21 [History Confirmed 10/09/22] Allergies/Adverse Reactions: Allergies Allergy/AdvReac Type Severity Reaction Status Date / Time Tetanus Vaccines and Toxoid Allergy Severe throat Verified 10/09/22 16:08 [Tetanus] swelling - Past Medical History Past Medical History: Yes Neurological History: No Pertinent History ENT History: Cataracts Cardiac History: Angina, High Cholesterol, Hypertension Respiratory History: COPD, Lung Cancer Endocrine Medical History: No Pertinent History Musculoskelatal History: Degenerative Disk Disease, Osteoporosis GI Medical History: GERD History: No Pertinent History Pyscho-Social History: Anxiety Reproductive Disorders: No Pertinent History Comment: Pt denies heart disease but she does have episodes of angina and follows Dr. massey every 3 to 6 months. Pt reports negative stress and that chest pain is a result of heart shift after right upper lobectomy - Past Surgical History Past Surgical History: Yes Neuro Surgical History: No Pertinent History Cardiac History: No Pertinent History Respiratory Surgery: Lobectomy GI Surgical History: Appendectomy Genitourinary Surgical Hx: No Pertinent History Musculskeletal Surgical Hx: Orthopedic Surgery Female Surgical History: Hysterectomy, Tubal Ligation Other Surgical History: Right upper lobectomy. Right thumb reconstructive surgery. right hand surgery. Right knee replacement. left elbow bursa surgery, back surgery - Social History Smoking Status: Former smoker How long have you smoked: 40 years Exposure to second hand smoke: No Alcohol: None Drug Use: none Significant Family History: no pertinent family hx - Physical Exam Vital Signs: Vital Signs - 24 hr Temp Pulse Resp BP BP Pulse Ox 10/09/22 20:58 104 H 27 H 98 10/09/22 20:01 112 H 30 H 133/102 93 L 10/09/22 19:50 96 10/09/22 19:47 107 H 27 H 97 10/09/22 19:00 105 H 24 147/91 147/91 100 10/09/22 18:00 100 H 24 97 10/09/22 16:38 93 H 26 H 98 10/09/22 15:57 98.0 F 98 H 26 H 146/99 96 General Appearance: no apparent distress Neurologic Exam: alert, oriented x 3, cooperative, normal mood/affect, nml cerebellar function, nml station & gait, sensation nml, No motor deficits Eye Exam: PERRL/EOMI, eyes nml inspection Ears, Nose, Throat Exam: normal ENT inspection, TMs normal, pharynx normal, moist mucous membranes Neck Exam: normal inspection, non-tender, supple, full range of motion Respiratory Exam: normal breath sounds, lungs clear, No respiratory distress Cardiovascular Exam: regular rate/rhythm, normal heart sounds, normal peripheral pulses Gastrointestinal/Abdomen Exam: soft, normal bowel sounds, No tenderness, No mass Back Exam: normal inspection, normal range of motion, No CVA tenderness, No vertebral tenderness Extremity Exam: normal inspection, normal range of motion, pelvis stable Skin Exam: normal color, warm, dry, No rash Results - Labs Lab/Micro Results: Lab Results-Last 24 Hours 10/09/22 10/09/22 10/09/22 Range/Units 16:10 16:10 16:10 WBC 10.2 (4.0-10.5) x10^3/uL RBC 4.07 L (4.1-5.4) x10^6/uL Hgb 11.8 L (12.0-16.0) g/dL Hct 37.0 (35-47) % MCV 90.9 (78-100) fL MCH 29.0 (26-32) pg MCHC 31.9 L (32-36) g/dL RDW 14.3 H (11.5-14.0) % Plt Count 279 (150-450) x10^3/uL MPV 10.2 (7.5-11.0) fL Gran % 88.9 H (36.0-66.0) % Immature Gran % (Auto) 0.9 H (0.00-0.4) % Nucleat RBC Rel Count 0.0 (0.00-0.1) % Eos # (Auto) 0.01 (0-0.5) x10^3/uL Immature Gran # (Auto) 0.09 H (0.00-0.03) x10^3u/L Absolute Lymphs (auto) 0.66 L (1.0-4.6) x10^3/uL Absolute Monos (auto) 0.33 (0.0-1.3) x10^3/uL Absolute Nucleated RBC 0.00 (0.00-0.01) x10^3u/L Lymphocytes % 6.5 L (24.0-44.0) % Monocytes % 3.2 (0.0-12.0) % Eosinophils % 0.1 (0.00-5.0) % Basophils % 0.4 (0.0-0.4) % Absolute Granulocytes 9.03 H (1.4-6.9) x10^3/uL Basophils # 0.04 (0-0.4) x10^3/uL PT 11.4 (9.4-12.5) SECONDS INR 1.05 (0.8-3.0) APTT 28.2 (25.1-36.5) SECONDS Sodium 133 L (137-145) mmol/L Potassium 4.2 (3.5-5.1) mmol/L Chloride 89 L (98-107) mmol/L Carbon Dioxide 38 H (22-30) mmol/L Anion Gap 10.6 (5-15) MEQ/L BUN 22 H (7-17) mg/dL Creatinine 0.73 (0.52-1.04) mg/dL Estimated GFR > 60.0 ML/MIN Glucose 144 H (74-106) mg/dL Lactic Acid (0.4-2.0) Calcium 9.3 (8.4-10.2) mg/dL Total Bilirubin 1.70 H (0.2-1.3) mg/dL AST 45 H (14-36) U/L ALT 28 (0-35) U/L Alkaline Phosphatase 96 (38-126) U/L Troponin I (0.000-0.034) ng/mL NT-Pro-B Natriuret Pep 1080 (<300) pg/mL Serum Total Protein 7.0 (6.3-8.2) g/dL Albumin 4.2 (3.5-5.0) g/dL Influenza Type A Ag (NEGATIVE) Influenza Type B Ag (NEGATIVE) RSV (PCR) (NEGATIVE) SARS-CoV-2 (PCR) (NEGATIVE) 10/09/22 10/09/22 10/09/22 Range/Units 16:10 16:20 16:35 WBC (4.0-10.5) x10^3/uL RBC (4.1-5.4) x10^6/uL Hgb (12.0-16.0) g/dL Hct (35-47) % MCV (78-100) fL MCH (26-32) pg MCHC (32-36) g/dL RDW (11.5-14.0) % Plt Count (150-450) x10^3/uL MPV (7.5-11.0) fL Gran % (36.0-66.0) % Immature Gran % (Auto) (0.00-0.4) % Nucleat RBC Rel Count (0.00-0.1) % Eos # (Auto) (0-0.5) x10^3/uL Immature Gran # (Auto) (0.00-0.03) x10^3u/L Absolute Lymphs (auto) (1.0-4.6) x10^3/uL Absolute Monos (auto) (0.0-1.3) x10^3/uL Absolute Nucleated RBC (0.00-0.01) x10^3u/L Lymphocytes % (24.0-44.0) % Monocytes % (0.0-12.0) % Eosinophils % (0.00-5.0) % Basophils % (0.0-0.4) % Absolute Granulocytes (1.4-6.9) x10^3/uL Basophils # (0-0.4) x10^3/uL PT (9.4-12.5) SECONDS INR (0.8-3.0) APTT (25.1-36.5) SECONDS Sodium (137-145) mmol/L Potassium (3.5-5.1) mmol/L Chloride (98-107) mmol/L Carbon Dioxide (22-30) mmol/L Anion Gap (5-15) MEQ/L BUN (7-17) mg/dL Creatinine (0.52-1.04) mg/dL Estimated GFR ML/MIN Glucose (74-106) mg/dL Lactic Acid 1.2 (0.4-2.0) Calcium (8.4-10.2) mg/dL Total Bilirubin (0.2-1.3) mg/dL AST (14-36) U/L ALT (0-35) U/L Alkaline Phosphatase (38-126) U/L Troponin I < 0.012 (0.000-0.034) ng/mL NT-Pro-B Natriuret Pep (<300) pg/mL Serum Total Protein (6.3-8.2) g/dL Albumin (3.5-5.0) g/dL Influenza Type A Ag NEGATIVE (NEGATIVE) Influenza Type B Ag NEGATIVE (NEGATIVE) RSV (PCR) NEGATIVE (NEGATIVE) SARS-CoV-2 (PCR) NEGATIVE (NEGATIVE) 10/09/22 Range/Units 19:52 WBC (4.0-10.5) x10^3/uL RBC (4.1-5.4) x10^6/uL Hgb (12.0-16.0) g/dL Hct (35-47) % MCV (78-100) fL MCH (26-32) pg MCHC (32-36) g/dL RDW (11.5-14.0) % Plt Count (150-450) x10^3/uL MPV (7.5-11.0) fL Gran % (36.0-66.0) % Immature Gran % (Auto) (0.00-0.4) % Nucleat RBC Rel Count (0.00-0.1) % Eos # (Auto) (0-0.5) x10^3/uL Immature Gran # (Auto) (0.00-0.03) x10^3u/L Absolute Lymphs (auto) (1.0-4.6) x10^3/uL Absolute Monos (auto) (0.0-1.3) x10^3/uL Absolute Nucleated RBC (0.00-0.01) x10^3u/L Lymphocytes % (24.0-44.0) % Monocytes % (0.0-12.0) % Eosinophils % (0.00-5.0) % Basophils % (0.0-0.4) % Absolute Granulocytes (1.4-6.9) x10^3/uL Basophils # (0-0.4) x10^3/uL PT (9.4-12.5) SECONDS INR (0.8-3.0) APTT (25.1-36.5) SECONDS Sodium (137-145) mmol/L Potassium (3.5-5.1) mmol/L Chloride (98-107) mmol/L Carbon Dioxide (22-30) mmol/L Anion Gap (5-15) MEQ/L BUN (7-17) mg/dL Creatinine (0.52-1.04) mg/dL Estimated GFR ML/MIN Glucose (74-106) mg/dL Lactic Acid (0.4-2.0) Calcium (8.4-10.2) mg/dL Total Bilirubin (0.2-1.3) mg/dL AST (14-36) U/L ALT (0-35) U/L Alkaline Phosphatase (38-126) U/L Troponin I < 0.012 (0.000-0.034) ng/mL NT-Pro-B Natriuret Pep (<300) pg/mL Serum Total Protein (6.3-8.2) g/dL Albumin (3.5-5.0) g/dL Influenza Type A Ag (NEGATIVE) Influenza Type B Ag (NEGATIVE) RSV (PCR) (NEGATIVE) SARS-CoV-2 (PCR) (NEGATIVE) - Radiology Impressions Radiology Exams & Impressions: Radiology Procedures Category Date Time Status CHEST 1 VIEW (PORTABLE) Stat Exams 10/09/22 16:05 Completed CHEST WITHOUT CONTRAST [CT] Stat Exams 10/09/22 17:30 Completed - Other Procedures and Tests Respiratory Therapy 10/09/22 19:16 Oxygen Nasal Cannula 4 lpm Assessment/Plan (1) Acute exacerbation of chronic obstructive airways disease Current Visit: Yes Status: Acute Assessment & Plan: 1. Prednisone 40 mg daily 2. Duonebs 3. Hold Abx for now Code(s): J44.1 - CHRONIC OBSTRUCTIVE PULMONARY DISEASE W (ACUTE) EXACERBATION Telemedicine Encounter - Telemedicine Encounter Telemedicine Encounter: The entirety of this encounter was performed via Telemedicine"
[2022-10-09 22:27] LABS: Appearance Clear (Clear); Bacteria None Seen /HPF (None Seen); Bilirubin Negative (Negative); Blood Negative (Negative); Epithelial Cells None Seen /HPF (None Seen); Glucose, Urine Negative (Negative); Hyaline Casts NONE SEEN /LPF (0-2); Ketones Negative (Negative); Leukocyte Esterase Negative (Negative); Nitrite Negative (Negative); Protein,Urine Dip Negative (Negative); RBC 0-2 /HPF (0-5); WBC 0-2 /HPF (0-5)
[2022-10-09 22:30] LABS: ADD URINE CULTURE? ORDERED SEPARATELY (NO)
[2022-10-09] MEDS ORDERED: NAPROSYN 375 MG PO PRN (23:03)
[2022-10-09] MEDS ORDERED: Naprosyn 500 MG ONE (23:16)
[2022-10-09] MEDS ORDERED: Lasix 40 MG ONE (23:17)
[2022-10-09] MEDS: ZOCOR 20MG PO SCH (23:20)
[2022-10-09] MEDS: Klor Con PO SCH (23:21)
[2022-10-09] MEDS ORDERED: Naprosyn 500 MG PO PRN (23:30)
[2022-10-09] MEDS: XANAX 1 MG PO PRN (23:34)
[2022-10-09] MEDS: COREG 12.5 MG PO SCH (23:42)
[2022-10-09] MEDS: DUONEB 0.5-3 MG/3 ml Neb IH SCH (23:43)
[2022-10-10] MEDS: DUONEB 0.5-3 MG/3 ml Neb IH SCH ×6 (03:34→22:20)
[2022-10-10] MEDS ORDERED: DUONEB 0.5-3 MG/3 ml Neb IH ONE (07:11)
[2022-10-10] MEDS: Spiriva 18 Mcg/Cap Inhaler IH SCH ×2 (07:20→11:25)
[2022-10-10] MEDS: Naprosyn 500 MG PO PRN ×2 (07:40→21:41)
[2022-10-10] MEDS: Lasix 40 MG PO SCH ×2 (10:00→16:36)
[2022-10-10] MEDS ORDERED: DELTASONE 20 MG PO SCH (10:00)
[2022-10-10] MEDS ORDERED: Naprosyn 500 MG PO SCH (10:00)
[2022-10-10] MEDS: BUSPAR 5 MG PO SCH ×2 (10:00→21:59)
[2022-10-10] MEDS ORDERED: NON-FORMULARY ITEM (Magnesium Oxide [Magnesium] 250 MG Tablet) PO SCH (10:00)
[2022-10-10] MEDS: COREG 12.5 MG PO SCH ×2 (10:00→21:40)
[2022-10-10] MEDS: MAG-OX 400 PO SCH (10:00)
[2022-10-10] MEDS: Klor Con PO SCH ×2 (10:01→21:41)
[2022-10-10] MEDS: ECOTRIN 81 MG PO SCH (10:01)
[2022-10-10] MEDS: Zithromax 500 MG/ 250 ML NaCl Premix 500 MG/250 ML IVPB IV SCH (10:01)
[2022-10-10] MEDS: NITRO-BID PO SCH (10:01)
[2022-10-10] MEDS ORDERED: DUONEB 0.5-3 MG/3 ml Neb IH PRN (10:41)
--- NOTE | 2022-10-10 12:30 | PCM.NOTE ---
Date and Time: 10/10/22 1221 Subjective Assessment: 10/10/22 is a 72 year old female. She has a medical history significant for COPD, HTN, CHF who presents with SOB, wheezing and cough. She was admitted for pneumonia and COPD exacerbation. Denies fevers, cough with sputum and chest pain. She has baseline hypoxia and uses 4 liters NC at home. She has increased SOB and either leans over bedside table or tripods to breath. Will increase steroids. Continue Rocephin and Zithromax. RT evaluated and breathing tx increased. Will continue Lasix 40mg BID as BNP 1,080. Pt has a herrera in place as she is so SOB and cannot get up and walk. She does c/o of some lower back pain and CT results reviewed with pt, shows degenerative changes. She denies abd. pain, N/V/D. - Review of Systems Constitutional: No Fever, No Chills Eyes: No Symptoms Ears, Nose, & Throat: No Symptoms Respiratory: Cough, Short Of Breath, Wheezing, Other Cardiac: No Chest Pain, No Edema, No Syncope Abdominal/Gastrointestinal: No Abdominal Pain, No Nausea, No Vomiting, No Diarrhea Genitourinary Symptoms: No Dysuria Musculoskeletal: No Back Pain, No Neck Pain Skin: No Rash Neurological: No Dizziness, No Focal Weakness, No Sensory Changes Psychological: No Symptoms Endocrine: No Symptoms Hematologic/Lymphatic: No Symptoms Immunological/Allergic: No Symptoms Objective Exam General Appearance: moderate distress, alert, thin Neurologic Exam: alert, oriented x 3, cooperative, normal mood/affect, nml cerebellar function, sensation nml, No motor deficits Skin Exam: normal color, warm, dry Eye Exam: PERRL, EOMI, eyes nml inspection Ears, Nose, Throat Exam: normal ENT inspection, pharynx normal, moist mucous membranes Neck Exam: normal inspection, non-tender, supple, full range of motion Respiratory Exam: respiratory distress, crackles/rales, wheezing Cardiovascular Exam: regular rate/rhythm, normal heart sounds Gastrointestinal/Abdomen Exam: soft, No tenderness, No mass Extremity Exam: normal inspection, normal range of motion Back Exam: normal inspection, normal range of motion, No CVA tenderness, No vertebral tenderness Pelvic Exam: deferred Rectal Exam: deferred OBJECTIVE DATA Vital Signs: Vital Signs - 24 hr Temp Pulse Resp BP BP Pulse Ox 10/10/22 12:00 97.9 F 80 16 114/58 99 10/10/22 11:29 85 22 95 10/10/22 07:22 95 H 22 95 10/10/22 06:40 97.6 F 95 H 16 112/72 95 10/10/22 03:35 97.9 F 99 H 20 133/91 97 10/10/22 03:34 96 H 20 97 10/09/22 23:44 103 H 20 97 10/09/22 22:10 98.2 F 99 H 20 149/75 96 10/09/22 20:58 104 H 27 H 98 10/09/22 20:01 112 H 30 H 133/102 93 L 10/09/22 19:50 96 10/09/22 19:47 107 H 27 H 97 10/09/22 19:00 105 H 24 147/91 147/91 100 10/09/22 18:00 100 H 24 97 10/09/22 16:38 93 H 26 H 98 10/09/22 15:57 98.0 F 98 H 26 H 146/99 96 Pain Assessment - Last Documented Pain Intensity 6 Intake and Output: Intake & Output 10/08/22 10/09/22 10/10/22 10/11/22 11:59 11:59 11:59 11:59 Intake Total 860 Output Total 1900 Balance -1040 Weight 54.9 kg Lab Results: Lab Results-Last 24 Hours 10/09/22 10/09/22 10/09/22 Range/Units 16:10 16:10 16:10 WBC 10.2 (4.0-10.5) x10^3/uL RBC 4.07 L (4.1-5.4) x10^6/uL Hgb 11.8 L (12.0-16.0) g/dL Hct 37.0 (35-47) % MCV 90.9 (78-100) fL MCH 29.0 (26-32) pg MCHC 31.9 L (32-36) g/dL RDW 14.3 H (11.5-14.0) % Plt Count 279 (150-450) x10^3/uL MPV 10.2 (7.5-11.0) fL Gran % 88.9 H (36.0-66.0) % Immature Gran % (Auto) 0.9 H (0.00-0.4) % Nucleat RBC Rel Count 0.0 (0.00-0.1) % Eos # (Auto) 0.01 (0-0.5) x10^3/uL Immature Gran # (Auto) 0.09 H (0.00-0.03) x10^3u/L Absolute Lymphs (auto) 0.66 L (1.0-4.6) x10^3/uL Absolute Monos (auto) 0.33 (0.0-1.3) x10^3/uL Absolute Nucleated RBC 0.00 (0.00-0.01) x10^3u/L Lymphocytes % 6.5 L (24.0-44.0) % Monocytes % 3.2 (0.0-12.0) % Eosinophils % 0.1 (0.00-5.0) % Basophils % 0.4 (0.0-0.4) % Absolute Granulocytes 9.03 H (1.4-6.9) x10^3/uL Basophils # 0.04 (0-0.4) x10^3/uL PT 11.4 (9.4-12.5) SECONDS INR 1.05 (0.8-3.0) APTT 28.2 (25.1-36.5) SECONDS Sodium 133 L (137-145) mmol/L Potassium 4.2 (3.5-5.1) mmol/L Chloride 89 L (98-107) mmol/L Carbon Dioxide 38 H (22-30) mmol/L Anion Gap 10.6 (5-15) MEQ/L BUN 22 H (7-17) mg/dL Creatinine 0.73 (0.52-1.04) mg/dL Estimated GFR > 60.0 ML/MIN Glucose 144 H (74-106) mg/dL Lactic Acid (0.4-2.0) Calcium 9.3 (8.4-10.2) mg/dL Total Bilirubin 1.70 H (0.2-1.3) mg/dL AST 45 H (14-36) U/L ALT 28 (0-35) U/L Alkaline Phosphatase 96 (38-126) U/L Troponin I (0.000-0.034) ng/mL NT-Pro-B Natriuret Pep 1080 (<300) pg/mL Serum Total Protein 7.0 (6.3-8.2) g/dL Albumin 4.2 (3.5-5.0) g/dL Urine Color (Yellow) Urine Appearance (Clear) Urine pH (4.6-8.0) Ur Specific Kemp (1.005-1.030) Urine Protein (Negative) Urine Glucose (UA) (Negative) mg/dL Urine Ketones (Negative) Urine Blood (Negative) Urine Nitrite (Negative) Urine Bilirubin (Negative) Urine Urobilinogen (0.2) mg/dL Ur Leukocyte Esterase (Negative) U Hyaline Cast (Auto) (0-2) /LPF Urine Microscopic RBC (0-5) /HPF Urine Microscopic WBC (0-5) /HPF Ur Epithelial Cells (None Seen) /HPF Urine Bacteria (None Seen) /HPF Urine Culture Reflexed (NO) Influenza Type A Ag (NEGATIVE) Influenza Type B Ag (NEGATIVE) RSV (PCR) (NEGATIVE) SARS-CoV-2 (PCR) (NEGATIVE) 10/09/22 10/09/22 10/09/22 Range/Units 16:10 16:20 16:35 WBC (4.0-10.5) x10^3/uL RBC (4.1-5.4) x10^6/uL Hgb (12.0-16.0) g/dL Hct (35-47) % MCV (78-100) fL MCH (26-32) pg MCHC (32-36) g/dL RDW (11.5-14.0) % Plt Count (150-450) x10^3/uL MPV (7.5-11.0) fL Gran % (36.0-66.0) % Immature Gran % (Auto) (0.00-0.4) % Nucleat RBC Rel Count (0.00-0.1) % Eos # (Auto) (0-0.5) x10^3/uL Immature Gran # (Auto) (0.00-0.03) x10^3u/L Absolute Lymphs (auto) (1.0-4.6) x10^3/uL Absolute Monos (auto) (0.0-1.3) x10^3/uL Absolute Nucleated RBC (0.00-0.01) x10^3u/L Lymphocytes % (24.0-44.0) % Monocytes % (0.0-12.0) % Eosinophils % (0.00-5.0) % Basophils % (0.0-0.4) % Absolute Granulocytes (1.4-6.9) x10^3/uL Basophils # (0-0.4) x10^3/uL PT (9.4-12.5) SECONDS INR (0.8-3.0) APTT (25.1-36.5) SECONDS Sodium (137-145) mmol/L Potassium (3.5-5.1) mmol/L Chloride (98-107) mmol/L Carbon Dioxide (22-30) mmol/L Anion Gap (5-15) MEQ/L BUN (7-17) mg/dL Creatinine (0.52-1.04) mg/dL Estimated GFR ML/MIN Glucose (74-106) mg/dL Lactic Acid 1.2 (0.4-2.0) Calcium (8.4-10.2) mg/dL Total Bilirubin (0.2-1.3) mg/dL AST (14-36) U/L ALT (0-35) U/L Alkaline Phosphatase (38-126) U/L Troponin I < 0.012 (0.000-0.034) ng/mL NT-Pro-B Natriuret Pep (<300) pg/mL Serum Total Protein (6.3-8.2) g/dL Albumin (3.5-5.0) g/dL Urine Color (Yellow) Urine Appearance (Clear) Urine pH (4.6-8.0) Ur Specific Kemp (1.005-1.030) Urine Protein (Negative) Urine Glucose (UA) (Negative) mg/dL Urine Ketones (Negative) Urine Blood (Negative) Urine Nitrite (Negative) Urine Bilirubin (Negative) Urine Urobilinogen (0.2) mg/dL Ur Leukocyte Esterase (Negative) U Hyaline Cast (Auto) (0-2) /LPF Urine Microscopic RBC (0-5) /HPF Urine Microscopic WBC (0-5) /HPF Ur Epithelial Cells (None Seen) /HPF Urine Bacteria (None Seen) /HPF Urine Culture Reflexed (NO) Influenza Type A Ag NEGATIVE (NEGATIVE) Influenza Type B Ag NEGATIVE (NEGATIVE) RSV (PCR) NEGATIVE (NEGATIVE) SARS-CoV-2 (PCR) NEGATIVE (NEGATIVE) 10/09/22 10/09/22 10/10/22 Range/Units 19:52 21:33 00:24 WBC (4.0-10.5) x10^3/uL RBC (4.1-5.4) x10^6/uL Hgb (12.0-16.0) g/dL Hct (35-47) % MCV (78-100) fL MCH (26-32) pg MCHC (32-36) g/dL RDW (11.5-14.0) % Plt Count (150-450) x10^3/uL MPV (7.5-11.0) fL Gran % (36.0-66.0) % Immature Gran % (Auto) (0.00-0.4) % Nucleat RBC Rel Count (0.00-0.1) % Eos # (Auto) (0-0.5) x10^3/uL Immature Gran # (Auto) (0.00-0.03) x10^3u/L Absolute Lymphs (auto) (1.0-4.6) x10^3/uL Absolute Monos (auto) (0.0-1.3) x10^3/uL Absolute Nucleated RBC (0.00-0.01) x10^3u/L Lymphocytes % (24.0-44.0) % Monocytes % (0.0-12.0) % Eosinophils % (0.00-5.0) % Basophils % (0.0-0.4) % Absolute Granulocytes (1.4-6.9) x10^3/uL Basophils # (0-0.4) x10^3/uL PT (9.4-12.5) SECONDS INR (0.8-3.0) APTT (25.1-36.5) SECONDS Sodium (137-145) mmol/L Potassium (3.5-5.1) mmol/L Chloride (98-107) mmol/L Carbon Dioxide (22-30) mmol/L Anion Gap (5-15) MEQ/L BUN (7-17) mg/dL Creatinine (0.52-1.04) mg/dL Estimated GFR ML/MIN Glucose (74-106) mg/dL Lactic Acid (0.4-2.0) Calcium (8.4-10.2) mg/dL Total Bilirubin (0.2-1.3) mg/dL AST (14-36) U/L ALT (0-35) U/L Alkaline Phosphatase (38-126) U/L Troponin I < 0.012 0.014 (0.000-0.034) ng/mL NT-Pro-B Natriuret Pep (<300) pg/mL Serum Total Protein (6.3-8.2) g/dL Albumin (3.5-5.0) g/dL Urine Color Yellow (Yellow) Urine Appearance Clear (Clear) Urine pH 6.0 (4.6-8.0) Ur Specific Kemp 1.010 (1.005-1.030) Urine Protein Negative (Negative) Urine Glucose (UA) Negative (Negative) mg/dL Urine Ketones Negative (Negative) Urine Blood Negative (Negative) Urine Nitrite Negative (Negative) Urine Bilirubin Negative (Negative) Urine Urobilinogen 1.0 A (0.2) mg/dL Ur Leukocyte Esterase Negative (Negative) U Hyaline Cast (Auto) NONE SEEN (0-2) /LPF Urine Microscopic RBC 0-2 (0-5) /HPF Urine Microscopic WBC 0-2 (0-5) /HPF Ur Epithelial Cells None Seen (None Seen) /HPF Urine Bacteria None Seen (None Seen) /HPF Urine Culture Reflexed ORDERED SEPARATELY (NO) Influenza Type A Ag (NEGATIVE) Influenza Type B Ag (NEGATIVE) RSV (PCR) (NEGATIVE) SARS-CoV-2 (PCR) (NEGATIVE) Radiology Exams: Radiology Procedures Category Date Time Status CHEST 1 VIEW (PORTABLE) Stat Exams 10/09/22 16:05 Completed CHEST WITHOUT CONTRAST [CT] Stat Exams 10/09/22 17:30 Completed Assessment/Plan (1) Acute exacerbation of chronic obstructive airways disease Current Visit: Yes Status: Acute Assessment & Plan: - methylprednisone 125mg Q8 - Duonebs - Spirivia - BL 4LNC - Currently on 4LNC Code(s): J44.1 - CHRONIC OBSTRUCTIVE PULMONARY DISEASE W (ACUTE) EXACERBATION (2) Pneumonia Current Visit: Yes Status: Acute Assessment & Plan: Rocephin, Zithromax - Chest XR: 10/09 Nonacute chest with chronic features - CT chest: 10/09 1. Emphysematous lungs with mild centriacinar emphysema in both lower lobes. There is hyperinflation of the left lung with trans mediastinal herniation. 2. Small focal consolidation is seen in the left lower lobe SE 3 image #31. 3. No soliatry pulmonary nodule or definite lymphadenopathy to suggest metastases. 4. 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 Code(s): J18.9 - PNEUMONIA, UNSPECIFIED ORGANISM (3) Back pain, acute Current Visit: No Status: Acute Assessment & Plan: - Degenerative changes as seen per CT - Naprosyn Code(s): M54.9 - DORSALGIA, UNSPECIFIED (4) CHF (congestive heart failure) Current Visit: No Status: Acute Qualifiers: Heart failure type: systolic Heart failure chronicity: acute on chronic Qualified Code(s): I50.23 - Acute on chronic systolic (congestive) heart failure Assessment & Plan: - Chronic - Continue Lasix 40mg BID Code(s): I50.9 - HEART FAILURE, UNSPECIFIED (5) COPD (chronic obstructive pulmonary disease) Current Visit: No Status: Acute Qualifiers: COPD type: unspecified COPD Qualified Code(s): J44.9 - Chronic obstructive pulmonary disease, unspecified Assessment & Plan: - acute on chronic - pt on baseline oxygen VTE: Lovenox D/C plan: 1-2 days Next of kin: Calvin Steele [phone]
[2022-10-10 13:09] LABS: Hemoglobin 11.1 g/dL (12.0-16.0); Mean Cell Volume 91.9 fL (78-100); Mean Corpuscular Hemoglobin 29.1 pg (26-32); Mean Corpuscular Hgb Concent. 31.7 g/dL (32-36); Mean Platelet Volume 10.4 fL (7.5-11.0); Platelet Count 287 x10^3/uL (150-450); Red Blood Count 3.81 x10^6/uL (4.1-5.4); Red Cell Distribution Width 14.4 % (11.5-14.0); White Blood Count 18.8 x10^3/uL (4.0-10.5)
[2022-10-10 13:22] LABS: ALBUMIN 3.9 g/dL (3.5-5.0); ALKALINE PHOSPHATASE 84 U/L (38-126); ANION GAP 8.2 MEQ/L (5-15); BLOOD UREA NITROGEN 25 mg/dL (7-17); CHLORIDE 94 mmol/L (98-107); Calcium 8.5 mg/dL (8.4-10.2); Carbon Dioxide 39 mmol/L (22-30); Creatinine 1 0.83 mg/dL (0.52-1.04); EST GLOMERULAR FILTRATION RATE > 60.0 ML/MIN; Glucose 138 mg/dL (74-106); Potassium 3.9 mmol/L (3.5-5.1); SGOT/AST 56 U/L (14-36); SGPT/ALT 33 U/L (0-35); SODIUM 137 mmol/L (137-145); Total Protein 6.5 g/dL (6.3-8.2)
[2022-10-10] MEDS: solu-MEDROL 125 MG, Sterile H2O 10 ml 2 ML IV SCH ×4 (13:42→21:42)
[2022-10-10] MEDS: ENOXAPARIN SODIUM SQ SCH (13:42)
[2022-10-10] MEDS: Artificial Tears 15 ML OP SCH ×2 (16:39→21:41)
[2022-10-10] MEDS: ZOCOR 20MG PO SCH (21:40)
[2022-10-10] MEDS: XANAX 1 MG PO PRN (21:41)
[2022-10-10] MEDS: ROCEPHIN 1 Gm-D5w 50 ml Bag** 1 G/50 ML IVPB IV SCH (21:47)
[2022-10-11] MEDS: DUONEB 0.5-3 MG/3 ml Neb IH SCH ×6 (02:20→23:40)
[2022-10-11 04:45] LABS: Hematocrit 34.8 % (35-47); Mean Cell Volume 92.1 fL (78-100); Mean Corpuscular Hemoglobin 29.1 pg (26-32); Mean Corpuscular Hgb Concent. 31.6 g/dL (32-36); Platelet Count 256 x10^3/uL (150-450); Red Blood Count 3.78 x10^6/uL (4.1-5.4); Red Cell Distribution Width 14.7 % (11.5-14.0); White Blood Count 12.8 x10^3/uL (4.0-10.5)
--- NOTE | 2022-10-11 05:11 | PCM.NOTE ---
Date and Time: 10/11/22 0504 Subjective Assessment: Ms. 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 CT imaging of the chest showing severe emphysema and degenerative changes of the thoracic spine. Patient continues with persistent dyspnea. Lung sounds are coarse with exp wheezing on auscultation. She endorses that she feels worse today; she has been unable to clear sputum. She is at her baseline oxygen of 4L. Will add a one time dose of IV lasix 40mg to daily regimen. Continue solumedrol/inh/duonebs. Her right eye is normal on exam today although she states it does continue to close intermittently. Discussed goals of care, patient interested in pulmonary rehab at discharge if it is close to home. Not interested in SNF or hospice at this time. - Review of Systems Constitutional: No Symptoms Eyes: Other (Right eye intermittenly closing) Ears, Nose, & Throat: No Symptoms Respiratory: Cough, Orthopnea, Short Of Breath, Wheezing Cardiac: No Symptoms Abdominal/Gastrointestinal: No Symptoms Genitourinary Symptoms: Other (F/C) Musculoskeletal: Back Pain (chronic) Skin: No Symptoms Neurological: No Symptoms Psychological: No Symptoms Hematologic/Lymphatic: No Symptoms Immunological/Allergic: No Symptoms Objective Exam General Appearance: no apparent distress Neurologic Exam: alert, oriented x 3, cooperative Skin Exam: pale Eye Exam: PERRL Ears, Nose, Throat Exam: dry mucous membranes Respiratory Exam: crackles/rales (Coarse), wheezing Cardiovascular Exam: regular rate/rhythm, normal heart sounds Gastrointestinal/Abdomen Exam: soft, normal bowel sounds Extremity Exam: normal inspection OBJECTIVE DATA Vital Signs: Vital Signs - 24 hr Temp Pulse Resp BP Pulse Ox 10/11/22 03:46 97.5 F 69 16 112/65 98 10/11/22 02:20 81 20 100 10/11/22 00:00 72 15 10/10/22 22:20 86 22 97 10/10/22 19:45 97.5 F 81 20 131/68 95 10/10/22 19:15 84 24 98 10/10/22 16:00 97.7 F 86 16 122/74 97 10/10/22 15:03 79 22 96 10/10/22 12:00 97.9 F 80 16 114/58 99 10/10/22 11:29 85 22 95 10/10/22 07:22 95 H 22 95 10/10/22 06:40 97.6 F 95 H 16 112/72 95 Pain Assessment - Last Documented Pain Intensity 5 Intake and Output: Intake & Output 10/08/22 10/09/22 10/10/22 10/11/22 11:59 11:59 11:59 11:59 Intake Total 860 1160 Output Total 1900 2650 Balance -1040 -1490 Weight 54.9 kg Lab Results: Lab Results-Last 24 Hours 10/10/22 10/10/22 Range/Units 13:05 13:05 WBC 18.8 H (4.0-10.5) x10^3/uL RBC 3.81 L (4.1-5.4) x10^6/uL Hgb 11.1 L (12.0-16.0) g/dL Hct 35.0 (35-47) % MCV 91.9 (78-100) fL MCH 29.1 (26-32) pg MCHC 31.7 L (32-36) g/dL RDW 14.4 H (11.5-14.0) % Plt Count 287 (150-450) x10^3/uL MPV 10.4 (7.5-11.0) fL Sodium 137 (137-145) mmol/L Potassium 3.9 (3.5-5.1) mmol/L Chloride 94 L (98-107) mmol/L Carbon Dioxide 39 H (22-30) mmol/L Anion Gap 8.2 (5-15) MEQ/L BUN 25 H (7-17) mg/dL Creatinine 0.83 (0.52-1.04) mg/dL Estimated GFR > 60.0 ML/MIN Glucose 138 H (74-106) mg/dL Calcium 8.5 (8.4-10.2) mg/dL Total Bilirubin 1.10 (0.2-1.3) mg/dL AST 56 H (14-36) U/L ALT 33 (0-35) U/L Alkaline Phosphatase 84 (38-126) U/L Serum Total Protein 6.5 (6.3-8.2) g/dL Albumin 3.9 (3.5-5.0) g/dL Radiology Exams: Radiology Procedures Category Date Time Status CHEST 1 VIEW (PORTABLE) Stat Exams 10/09/22 16:05 Completed CHEST WITHOUT CONTRAST [CT] Stat Exams 10/09/22 17:30 Completed Assessment/Plan (1) Acute exacerbation of chronic obstructive airways disease Current Visit: Yes Status: Acute Assessment & Plan: 72 y/o F with severe emphysema, on 4L at home, p/w COPD exacerbation with some contribution of pneumonia. CT Chest shows severe emphysematous changes, and patient with persistent severe dyspnea, impaired air movement, difficulty speaking, and tripod positioning while breathing. She declined use of BiPAP. - Continue methylprednisone 125mg Q8, consider taper tomorrow if improved - Duonebs - Spirivia - Currently at BL 4LNC - add Mucinex Code(s): J44.1 - CHRONIC OBSTRUCTIVE PULMONARY DISEASE W (ACUTE) EXACERBATION (2) Pneumonia Current Visit: Yes Status: Acute Assessment & Plan: Rocephin, Zithromax - Chest XR: 10/09 Nonacute chest with chronic features - CT chest: 10/09 reviewed with findings of: 1. Emphysematous lungs with mild centriacinar emphysema in both lower lobes. There is hyperinflation of the left lung with trans mediastinal herniation. 2. Small focal consolidation is seen in the left lower lobe SE 3 image #31. 3. No soliatry pulmonary nodule or definite lymphadenopathy to suggest metastases. 4. Marked degenerative changes of the thoracic spine with kyphotic deformity and compression fracture -Repeat CXR tomorrow Code(s): J18.9 - PNEUMONIA, UNSPECIFIED ORGANISM (3) Back pain, acute Current Visit: No Status: Acute Qualifiers: Back pain location: low back pain Assessment & Plan: - Degenerative changes as seen per CT - Naprosyn Code(s): M54.9 - DORSALGIA, UNSPECIFIED (4) CHF (congestive heart failure) Current Visit: No Status: Acute Qualifiers: Heart failure type: systolic Heart failure chronicity: acute on chronic Qualified Code(s): I50.23 - Acute on chronic systolic (congestive) heart failure Assessment & Plan: - Chronic, no recent echo -Strict I&O -Monitor renal/lytes with goal K>4, MG >2 -BNP at 1080 - Continue Lasix 40mg BID, add one time dose of IV lasix 40mg -Repeat BNP tomorrow Code(s): I50.9 - HEART FAILURE, UNSPECIFIED
[2022-10-11 05:20] LABS: ALBUMIN 3.5 g/dL (3.5-5.0); ALKALINE PHOSPHATASE 74 U/L (38-126); BLOOD UREA NITROGEN 25 mg/dL (7-17); CHLORIDE 96 mmol/L (98-107); Calcium 7.6 mg/dL (8.4-10.2); Creatinine 1 0.81 mg/dL (0.52-1.04); EST GLOMERULAR FILTRATION RATE > 60.0 ML/MIN; Glucose 140 mg/dL (74-106); Potassium 3.9 mmol/L (3.5-5.1); SGOT/AST 51 U/L (14-36); SGPT/ALT 30 U/L (0-35); SODIUM 140 mmol/L (137-145)
[2022-10-11 05:26] LABS: Carbon Dioxide 36 mmol/L (22-30)
[2022-10-11 05:47] LABS: ANION GAP 11.9 MEQ/L (5-15)
[2022-10-11] MEDS ORDERED: solu-MEDROL ONE (06:28)
[2022-10-11] MEDS: solu-MEDROL 125 MG, Sterile H2O 10 ml 2 ML IV SCH ×6 (06:33→21:18)
[2022-10-11] MEDS: Spiriva 18 Mcg/Cap Inhaler IH SCH (07:09)
[2022-10-11] MEDS: MAG-OX 400 PO SCH (10:03)
[2022-10-11] MEDS: Klor Con PO SCH ×2 (10:03→21:19)
[2022-10-11] MEDS: Artificial Tears 15 ML OP SCH ×4 (10:03→21:19)
[2022-10-11] MEDS: ECOTRIN 81 MG PO SCH (10:03)
[2022-10-11] MEDS: Zithromax 500 MG/ 250 ML NaCl Premix 500 MG/250 ML IVPB IV SCH (10:03)
[2022-10-11] MEDS: Lasix 40 MG PO SCH ×2 (10:03→16:33)
[2022-10-11] MEDS: NITRO-BID PO SCH (10:03)
[2022-10-11] MEDS: BUSPAR 5 MG PO SCH ×2 (10:03→21:19)
[2022-10-11] MEDS: COREG 12.5 MG PO SCH ×2 (10:05→21:19)
[2022-10-11] MEDS: ENOXAPARIN SODIUM SQ SCH (10:11)
[2022-10-11] MEDS ORDERED: Lasix 40 MG/4 ML IV ONE (12:22)
[2022-10-11] MEDS: Naprosyn 500 MG PO PRN ×2 (16:37→22:10)
[2022-10-11] MEDS: ROCEPHIN 1 Gm-D5w 50 ml Bag** 1 G/50 ML IVPB IV SCH (21:18)
[2022-10-11] MEDS: Mucinex 600MG ER Tabs PO SCH (21:19)
[2022-10-11] MEDS: ZOCOR 20MG PO SCH (21:19)
[2022-10-11] MEDS: XANAX 1 MG PO PRN (22:09)
[2022-10-12] MEDS: DUONEB 0.5-3 MG/3 ml Neb IH SCH ×6 (03:30→22:40)
[2022-10-12] MEDS: solu-MEDROL 125 MG, Sterile H2O 10 ml 2 ML IV SCH ×6 (05:52→21:16)
[2022-10-12] MEDS: Spiriva 18 Mcg/Cap Inhaler IH SCH (06:58)
[2022-10-12] MEDS: Zithromax 500 MG/ 250 ML NaCl Premix 500 MG/250 ML IVPB IV SCH (09:39)
[2022-10-12] MEDS: Klor Con PO SCH ×2 (09:40→21:16)
[2022-10-12] MEDS: Mucinex 600MG ER Tabs PO SCH ×2 (09:40→21:16)
[2022-10-12] MEDS: MAG-OX 400 PO SCH (09:40)
[2022-10-12] MEDS: Lasix 40 MG PO SCH ×2 (09:40→17:47)
[2022-10-12] MEDS: COREG 12.5 MG PO SCH ×2 (09:40→21:16)
[2022-10-12] MEDS: BUSPAR 5 MG PO SCH ×2 (09:40→21:16)
[2022-10-12] MEDS: ECOTRIN 81 MG PO SCH (09:40)
[2022-10-12] MEDS: NITRO-BID PO SCH (09:40)
[2022-10-12] MEDS: ENOXAPARIN SODIUM SQ SCH (09:41)
[2022-10-12] MEDS: Artificial Tears 15 ML OP SCH ×4 (09:41→21:17)
--- NOTE | 2022-10-12 09:44 | XRAY ---
Indication: Short of breath. Comparison: October 09, 2022 PA/lateral chest less inflated and grossly unchanged again demonstrating COPD, mild bibasilar subsegmental atelectasis/scarring, and right lung suture material/surgical clips. Heart not enlarged again with tortuous descending aorta. No new/acute abnormalities.
--- NOTE | 2022-10-12 09:57 | PCM.NOTE ---
Date and Time: 10/12/22928 Subjective Assessment: Ms. Deleon is a 72 year old female with a pmhx of COPD (4L oxygen at baseline), HTN, and CHF who presented with SOB, wheezing, and a [employer]OR [employer] cough, admitted for COPD exacerbation and pneumonia being treated with high dose steroids (Solu-Medrol 125mg/IV), DuoNebs prn, Spiriva, zithromax, and rocephin. CT imaging of the chest showing severe emphysema and degenerative changes of the thoracic spine. Patient continues with persistent dyspnea. Appears less short of breath when talking. Lung sounds improved but remain coarse at bilateral lung bases with exp wheezing on auscultation. Patient endorses that she is feeling better today. Spoke with Dr. Heredia (pulmonology) who follows her, and updated him on h ospital course. Patient denies CP,N/V/D, - Review of Systems Eyes: Other (right eye with intermittent blurring/closing) Ears, Nose, & Throat: No Symptoms Respiratory: Cough, Short Of Breath, Wheezing, Other (on baseline 4L NC) Abdominal/Gastrointestinal: No Symptoms Genitourinary Symptoms: No Symptoms, Other (FC) Musculoskeletal: Back Pain Skin: No Symptoms Neurological: No Symptoms Psychological: No Symptoms Objective Exam General Appearance: no apparent distress Neurologic Exam: alert, oriented x 3, cooperative Skin Exam: pale Eye Exam: PERRL, eyes nml inspection Respiratory Exam: crackles/rales (bilateral base Coarse crackles with exp wheezing), wheezing Cardiovascular Exam: regular rate/rhythm, normal heart sounds Gastrointestinal/Abdomen Exam: soft, normal bowel sounds Extremity Exam: normal inspection Back Exam: normal inspection OBJECTIVE DATA Vital Signs: Vital Signs - 24 hr Temp Pulse Resp BP Pulse Ox 10/12/22 07:03 91 H 20 96 10/12/22 06:00 97.6 F 80 20 126/78 97 10/12/22 03:30 83 20 97 10/12/22 00:00 97.5 F 85 24 135/80 95 10/11/22 23:40 86 22 95 10/11/22 19:41 97.1 F 83 32 H 155/80 98 10/11/22 18:27 96 H 24 98 10/11/22 16:00 97.8 F 84 20 152/86 100 10/11/22 11:30 97.6 F 82 22 106/72 98 10/11/22 10:43 88 22 95 Pain Assessment - Last Documented Pain Intensity 0 Intake and Output: Intake & Output 10/09/22 10/10/22 10/11/22 10/12/22 11:59 11:59 11:59 11:59 Intake Total 860 1520 840 Output Total 1900 2650 1750 Balance -1040 -1130 -910 Weight 54.9 kg Lab Results: Lab Results-Last 24 Hours 10/12/22 Range/Units 02:10 NT-Pro-B Natriuret Pep 1920 (<300) pg/mL Radiology Exams: Radiology Procedures Category Date Time Status CHEST 2 VIEWS (PA AND LAT) Routine Exams 10/12/22 08:00 Taken Assessment/Plan (1) Acute exacerbation of chronic obstructive airways disease Current Visit: Yes Status: Acute Assessment & Plan: 72 y/o F with severe emphysema, on 4L at home, p/w COPD exacerbation with some contribution of pneumonia. CT Chest shows severe emphysematous changes, and patient with persistent severe dyspnea, impaired air movement, difficulty speaking, and tripod positioning while breathing. She declined use of BiPAP. - Continue methylprednisone 125mg Q8, consider taper tomorrow if improved - Duonebs - Spirivia - Currently at BL 4LNC - add Mucinex -Consult Dr. Heredia Code(s): J44.1 - CHRONIC OBSTRUCTIVE PULMONARY DISEASE W (ACUTE) EXACERBATION (2) Pneumonia Current Visit: Yes Status: Acute Assessment & Plan: Rocephin, Zithromax - Chest XR: 10/09 Nonacute chest with chronic features - CT chest: 10/09 reviewed with findings of: 1. Emphysematous lungs with mild centriacinar emphysema in both lower lobes. There is hyperinflation of the left lung with trans mediastinal herniation. 2. Small focal consolidation is seen in the left lower lobe SE 3 image #31. 3. No soliatry pulmonary nodule or definite lymphadenopathy to suggest metastases. 4. Marked degenerative changes of the thoracic spine with kyphotic deformity and compression fracture -Repeat CXR tomorrow 10/12: -CXR less inflated and grossly unchanged again demonstrating COPD, mild bibasilar subsegmental atelectasis/scarring, and right lung suture material/surgical clips. Heart not enlarged again with tortuous descending aorta. No new/acute abnormalities. -Will d/c abx Code(s): J18.9 - PNEUMONIA, UNSPECIFIED ORGANISM (3) Back pain, acute Current Visit: No Status: Acute Qualifiers: Back pain location: low back pain Assessment & Plan: - Degenerative changes as seen per CT - [place] Code(s): M54.9 - DORSALGIA, UNSPECIFIED (4) CHF (congestive heart failure) Current Visit: No Status: Acute Qualifiers: Heart failure type: systolic Heart failure chronicity: acute on chronic Qualified Code(s): I50.23 - Acute on chronic systolic (congestive) heart failure Assessment & Plan: - Chronic, no recent echo -Strict I&O -Monitor renal/lytes with goal K>4, MG >2 -BNP at 1080 - Continue Lasix 80mg BID, add one time dose of IV lasix 40mg -Repeat BNP tomorrow 10/12: -BNP at 1920, may be secondary to COPD exacerbation, does not appear to be in exacerbation, no noted edema on exam Code(s): I50.9 - HEART FAILURE, UNSPECIFIED
[2022-10-12] MEDS: Naprosyn 500 MG PO PRN (10:23)
[2022-10-12] MEDS: Acidophilus TABLET PO SCH (11:32)
[2022-10-12] MEDS ORDERED: Lasix 40 MG/4 ML IV ONE (14:47)
[2022-10-12 17:08] LABS: Appearance Turbid (Clear); Bacteria None Seen /HPF (None Seen); Bilirubin Moderate (Negative); Blood Moderate (Negative); Epithelial Cells None Seen /HPF (None Seen); Glucose, Urine Negative (Negative); Ketones Negative (Negative); Leukocyte Esterase Large (Negative); Nitrite Positive (Negative); Protein,Urine Dip 100 (Negative); RBC >100 /HPF (0-5); Urobilinogen 0.2 mg/dL (0.2); WBC 51-100 /HPF (0-5)
[2022-10-12 17:09] LABS: ADD URINE CULTURE? ORDERED SEPARATELY (NO)
[2022-10-12] MEDS: MARY'S MOUTHWASH PO SCH ×2 (17:12→23:09)
[2022-10-12] MEDS: ZOCOR 20MG PO SCH (21:16)
[2022-10-12] MEDS: XANAX 1 MG PO PRN (21:23)
[2022-10-13] MEDS: DUONEB 0.5-3 MG/3 ml Neb IH SCH ×6 (02:25→23:05)
[2022-10-13] MEDS: solu-MEDROL 125 MG, Sterile H2O 10 ml 2 ML IV SCH ×4 (05:05→14:44)
[2022-10-13] MEDS: MARY'S MOUTHWASH PO SCH ×3 (05:05→18:52)
--- NOTE | 2022-10-13 05:16 | PCM.NOTE ---
Date and Time: 10/13/22512 Subjective Assessment: Ms. 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 CT imaging of the chest showing severe emphysema and degenerative changes of the thoracic spine. Patient continues with persistent dyspnea. Patient endorses continued shortness of breath and wheezing. Additionally the patient was noted with blood in her Treadwell bag yesterday. U/A suspicious for infection. Order placed for F/C to be removed. Patient started on Rocephin. - Review of Systems Constitutional: No Symptoms Eyes: No Symptoms Ears, Nose, & Throat: No Symptoms Respiratory: Cough, Short Of Breath, Wheezing Cardiac: No Symptoms Abdominal/Gastrointestinal: No Symptoms Genitourinary Symptoms: Dysuria, Hematuria Musculoskeletal: Back Pain Skin: No Symptoms Neurological: No Symptoms Objective Exam General Appearance: no apparent distress Neurologic Exam: alert, oriented x 3, cooperative Skin Exam: pale Eye Exam: PERRL Respiratory Exam: crackles/rales, wheezing Cardiovascular Exam: regular rate/rhythm, normal heart sounds Gastrointestinal/Abdomen Exam: soft, normal bowel sounds Extremity Exam: normal inspection OBJECTIVE DATA Vital Signs: Vital Signs - 24 hr Temp Pulse Resp BP Pulse Ox 10/13/22 04:00 98.0 F 89 18 138/62 95 10/13/22 02:25 91 H 20 98 10/12/22 23:30 97.6 F 88 23 140/88 96 10/12/22 22:40 96 H 26 H 97 10/12/22 19:00 105 H 24 91 L 10/12/22 18:00 97.8 F 92 H 25 H 143/86 96 10/12/22 15:14 92 H 20 98 10/12/22 14:00 97.2 F 96 H 16 147/89 96 10/12/22 11:00 90 24 97 10/12/22 10:00 97.6 F 95 H 20 115/77 96 10/12/22 07:03 91 H 20 96 10/12/22 06:00 97.6 F 80 20 126/78 97 Pain Assessment - Last Documented Pain Intensity 0 Intake and Output: Intake & Output 10/10/22 10/11/22 10/12/22 10/13/22 11:59 11:59 11:59 11:59 Intake Total 860 6265 312 7777 Output Total 1900 2650 1750 2200 Balance -1040 -1130 -910 -800 Weight 54.9 kg 54.9 kg Lab Results: Lab Results-Last 24 Hours 10/12/22 Range/Units 16:40 Urine Color Red A (Yellow) Urine Appearance Turbid A (Clear) Urine pH 7.0 (4.6-8.0) Ur Specific [place] 1.010 (1.005-1.030) Urine Protein 100 A (Negative) Urine Glucose (UA) Negative (Negative) mg/dL Urine Ketones Negative (Negative) Urine Blood Moderate A (Negative) Urine Nitrite Positive A (Negative) Urine Bilirubin Moderate A (Negative) Urine Urobilinogen 0.2 (0.2) mg/dL Ur Leukocyte Esterase Large A (Negative) U Hyaline Cast (Auto) 3-5 A (0-2) /LPF Urine Microscopic RBC >100 A (0-5) /HPF Urine Microscopic WBC 51-100 A (0-5) /HPF Ur Epithelial Cells None Seen (None Seen) /HPF Urine Bacteria None Seen (None Seen) /HPF Urine Culture Reflexed ORDERED SEPARATELY (NO) Radiology Exams: Radiology Procedures Category Date Time Status CHEST 2 VIEWS (PA AND LAT) Routine Exams 10/12/22 08:00 Completed Multi-Disciplinary Progress Notes: Multi-Disciplinary Progress Notes 10/12/22 10:02 Case Management Note by Carlie Wu S/W PATIENT- SHE CONTINUES TO DENY ANY NEW NEEDS AT TIME OF DC. I AGAIN ENCOURAGED [facility]- SHE STATED SHE WOULD THINK ABOUT IT. SHE PLANS TO DC HOME WITH HER SIG OTHER WHO ASSISTS HER NEEDED. PATIENT ALREADY HAS HOME OXYGEN WITH PORTABILITY AND IS CURRENTLY ON HER HOME SETTING Initialized on 10/12/22 10:02 - END OF NOTE Assessment/Plan (1) Acute exacerbation of chronic obstructive airways disease Current Visit: Yes Status: Acute Assessment & Plan: 72 y/o F with severe emphysema, on 4L at home, p/w COPD exacerbation with some contribution of pneumonia. CT Chest shows severe emphysematous changes, and patient with persistent severe dyspnea, impaired air movement, difficulty speaking, and tripod positioning while breathing. She declined use of BiPAP. - Continue methylprednisone 125mg Q8, consider taper tomorrow if improved - Susie - Mohit - Currently at BL 4LNC - add Mucinex -Consult Dr. Heredia Code(s): J44.1 - CHRONIC OBSTRUCTIVE PULMONARY DISEASE W (ACUTE) EXACERBATION (2) Pneumonia Current Visit: Yes Status: Acute Assessment & Plan: Rocephin, Zithromax - Chest XR: 10/09 Nonacute chest with chronic features - CT chest: 10/09 reviewed with findings of: 1. Emphysematous lungs with mild centriacinar emphysema in both lower lobes. There is hyperinflation of the left lung with trans mediastinal herniation. 2. Small focal consolidation is seen in the left lower lobe SE 3 image #31. 3. No soliatry pulmonary nodule or definite lymphadenopathy to suggest metastases. 4. Marked degenerative changes of the thoracic spine with kyphotic deformity and compression fracture -Repeat CXR tomorrow 10/12: -CXR less inflated and grossly unchanged again demonstrating COPD, mild bibasilar subsegmental atelectasis/scarring, and right lung suture material/surgical clips. Heart not enlarged again with tortuous descending aorta. No new/acute abnormalities. -D/c zithromax Code(s): J18.9 - PNEUMONIA, UNSPECIFIED ORGANISM (3) UTI (urinary tract infection) Current Visit: Yes Status: Acute Assessment & Plan: -UA suspicious for UTI, will treat empirically with Rocephin pending culture -D/C F/C, may replace with new F/C need new urine once cathed Code(s): N39.0 - URINARY TRACT INFECTION, SITE NOT SPECIFIED (4) Back pain, acute Current Visit: No Status: Acute Qualifiers: Back pain location: low back pain Assessment & Plan: - Degenerative changes as seen per CT - Naprosyn Code(s): M54.9 - DORSALGIA, UNSPECIFIED (5) CHF (congestive heart failure) Current Visit: No Status: Acute Qualifiers: Heart failure type: systolic Heart failure chronicity: acute on chronic Qualified Code(s): I50.23 - Acute on chronic systolic (congestive) heart failure Assessment & Plan: - Chronic, no recent echo -Strict I&O -Monitor renal/lytes with goal K>4, MG >2 -BNP at 1080 - Continue Lasix 80mg BID, add one time dose of IV lasix 40mg -Repeat BNP tomorrow 10/12: -BNP at 1920, may be secondary to COPD exacerbation, does not appear to be in exacerbation, no noted edema on exam Code(s): I50.9 - HEART FAILURE, UNSPECIFIED
[2022-10-13 06:19] LABS: Absolute Neutrophil Ct (ANC) 14.66 x10^3/uL (1.4-6.9); BASOPHIL % 0.1 % (0.0-0.4); Basophil (Absolute #) 0.02 x10^3/uL (0-0.4); Eosinophil (Absolute #) 0 x10^3/uL (0-0.5); Hematocrit 31.6 % (35-47); Hemoglobin 9.8 g/dL (12.0-16.0); IMMATURE GRAN # 0.13 x10^3u/L (0.00-0.03); IMMATURE GRAN % 0.8 % (0.00-0.4); Lymphocyte (Absolute #) 0.54 x10^3/uL (1.0-4.6); Lymphocytes % 3.3 % (24.0-44.0); Mean Cell Volume 93.5 fL (78-100); Mean Platelet Volume 10.4 fL (7.5-11.0); Monocyte (Absolute #) 1.08 x10^3/uL (0.0-1.3); Monocytes % 6.6 % (0.0-12.0); Neutrophil % 89.2 % (36.0-66.0); Platelet Count 234 x10^3/uL (150-450); Red Blood Count 3.38 x10^6/uL (4.1-5.4); Red Cell Distribution Width 14.6 % (11.5-14.0); White Blood Count 16.4 x10^3/uL (4.0-10.5)
[2022-10-13 06:26] LABS: ALBUMIN 3.1 g/dL (3.5-5.0); ALKALINE PHOSPHATASE 60 U/L (38-126); BLOOD UREA NITROGEN 44 mg/dL (7-17); CHLORIDE 94 mmol/L (98-107); Creatinine 1 0.72 mg/dL (0.52-1.04); EST GLOMERULAR FILTRATION RATE > 60.0 ML/MIN; Glucose 151 mg/dL (74-106); Potassium 3.7 mmol/L (3.5-5.1); SGOT/AST 31 U/L (14-36); SGPT/ALT 25 U/L (0-35); SODIUM 140 mmol/L (137-145); Total Protein 5.3 g/dL (6.3-8.2)
[2022-10-13 06:34] LABS: Carbon Dioxide 40 mmol/L (22-30)
[2022-10-13 06:35] LABS: ANION GAP 9.7 MEQ/L (5-15)
[2022-10-13 07:17] LABS: Slide Review 1 YES
[2022-10-13] MEDS: Spiriva 18 Mcg/Cap Inhaler IH SCH (07:24)
[2022-10-13] MEDS: Naprosyn 500 MG PO PRN (09:22)
[2022-10-13] MEDS: Klor Con PO SCH ×2 (10:24→21:43)
[2022-10-13] MEDS: ECOTRIN 81 MG PO SCH (10:24)
[2022-10-13] MEDS: Acidophilus TABLET PO SCH (10:24)
[2022-10-13] MEDS: COREG 12.5 MG PO SCH ×2 (10:24→21:43)
[2022-10-13] MEDS: Lasix 40 MG PO SCH (10:24)
[2022-10-13] MEDS: MAG-OX 400 PO SCH (10:24)
[2022-10-13] MEDS: Mucinex 600MG ER Tabs PO SCH ×2 (10:24→21:43)
[2022-10-13] MEDS: ROCEPHIN 1 Gm-D5w 50 ml Bag** 1 G/50 ML IVPB IV SCH (10:24)
[2022-10-13] MEDS: BUSPAR 5 MG PO SCH (10:24)
[2022-10-13] MEDS: NITRO-BID PO SCH (10:24)
[2022-10-13] MEDS: Artificial Tears 15 ML OP SCH ×3 (10:27→18:34)
[2022-10-13 11:55] LABS: Appearance Clear (Clear); Bacteria None Seen /HPF (None Seen); Bilirubin Negative (Negative); Blood Large (Negative); Epithelial Cells None Seen /HPF (None Seen); Glucose, Urine Negative (Negative); Ketones Negative (Negative); Leukocyte Esterase Small (Negative); Nitrite Negative (Negative); Protein,Urine Dip 30 (Negative); RBC >100 /HPF (0-5); Specific Gravity 1.015 (1.005-1.030); Urobilinogen 0.2 mg/dL (0.2)
[2022-10-13 11:56] LABS: ADD URINE CULTURE? YES (NO)
[2022-10-13] MEDS: Lasix 40 MG/4 ML IV SCH ×2 (14:44→21:43)
[2022-10-13] MEDS ORDERED: solu-MEDROL IV SCH (18:00)
[2022-10-13] MEDS ORDERED: PHARMACY DOSING REQUEST MC ONE (18:08)
[2022-10-13] MEDS ORDERED: Aminophylline 500 MG/20 ML IV ONE (18:25)
[2022-10-13] MEDS ORDERED: Sodium Chloride 0.9% 500 ML 500 ML IV ONE (18:25)
[2022-10-13] MEDS ORDERED: Aminophylline 500 MG/20 ML*** 500 MG in Sodium Chloride 0.9% 500 ML 500 ML IV SCH (18:30)
[2022-10-13] MEDS: solu-MEDROL IV SCH (21:43)
[2022-10-13] MEDS: ZOCOR 20MG PO SCH (21:43)
[2022-10-13] MEDS: XANAX 1 MG PO PRN (21:43)
[2022-10-14] MEDS: Artificial Tears 15 ML OP SCH ×5 (00:03→22:40)
[2022-10-14] MEDS: BUSPAR 5 MG PO SCH ×3 (00:04→22:37)
[2022-10-14] MEDS: MARY'S MOUTHWASH PO SCH ×5 (00:04→23:46)
[2022-10-14] MEDS: DUONEB 0.5-3 MG/3 ml Neb IH SCH ×6 (03:44→23:21)
[2022-10-14] MEDS: Lasix 40 MG/4 ML IV SCH ×3 (05:13→22:40)
[2022-10-14 06:09] LABS: ALBUMIN 3.7 g/dL (3.5-5.0); ALKALINE PHOSPHATASE 68 U/L (38-126); BLOOD UREA NITROGEN 38 mg/dL (7-17); CHLORIDE 91 mmol/L (98-107); Calcium 7.9 mg/dL (8.4-10.2); Creatinine 1 0.62 mg/dL (0.52-1.04); EST GLOMERULAR FILTRATION RATE > 60.0 ML/MIN; Glucose 154 mg/dL (74-106); Potassium 3.9 mmol/L (3.5-5.1); SGOT/AST 32 U/L (14-36); SGPT/ALT 27 U/L (0-35); SODIUM 141 mmol/L (137-145)
[2022-10-14 06:15] LABS: Carbon Dioxide 43 mmol/L (22-30)
[2022-10-14 06:16] LABS: ANION GAP 10.9 MEQ/L (5-15)
[2022-10-14 06:18] LABS: Absolute Neutrophil Ct (ANC) 19.95 x10^3/uL (1.4-6.9); BASOPHIL % 0.2 % (0.0-0.4); Basophil (Absolute #) 0.05 x10^3/uL (0-0.4); Eosinophil (Absolute #) 0 x10^3/uL (0-0.5); Hematocrit 34.9 % (35-47); Hemoglobin 10.6 g/dL (12.0-16.0); IMMATURE GRAN # 0.26 x10^3u/L (0.00-0.03); IMMATURE GRAN % 1.2 % (0.00-0.4); Lymphocyte (Absolute #) 0.51 x10^3/uL (1.0-4.6); Lymphocytes % 2.3 % (24.0-44.0); Mean Cell Volume 94.6 fL (78-100); Mean Corpuscular Hemoglobin 28.7 pg (26-32); Mean Corpuscular Hgb Concent. 30.4 g/dL (32-36); Mean Platelet Volume 10.8 fL (7.5-11.0); Monocyte (Absolute #) 1.46 x10^3/uL (0.0-1.3); Monocytes % 6.6 % (0.0-12.0); Neutrophil % 89.7 % (36.0-66.0); Platelet Count 283 x10^3/uL (150-450); Red Blood Count 3.69 x10^6/uL (4.1-5.4); Red Cell Distribution Width 14.5 % (11.5-14.0); White Blood Count 22.2 x10^3/uL (4.0-10.5)
--- NOTE | 2022-10-14 07:17 | PCM.NOTE ---
Date and Time: 10/14/22711 Subjective Assessment: Ms. 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 CT imaging of the chest showing severe emphysema and degenerative changes of the thoracic spine. Patient continues with persistent dyspnea. Patient endorses continued shortness of breath and wheezing. Additionally the patient was noted with blood in her Treadwell bag yesterday. U/A suspicious for infection. Order placed for F/C to be removed. Patient started on Rocephin, urine culture pending. Elevated BNP, IV lasix daily. Mild improvement in air flow on auscultation. Seen by Dr. Stanford started on aminophylline, solumedrol tapered to 40mg Q8H. Patient with persistent severe dyspnea, impaired air movement since yesterday, difficulty speaking, and tripod positioning while breathing. Reports that she feels her SOB is worsening. Agreeable to BIPAP. Also reports increase in back pain and anxiety, will start [place] for pain and add xanax prn. OBJECTIVE DATA Vital Signs: Vital Signs - 24 hr Temp Pulse Resp BP Pulse Ox 10/14/22 04:00 97.8 F 109 H 20 140/80 95 10/14/22 03:44 103 H 20 99 10/14/22 00:00 97.5 F 85 22 135/60 94 L 10/13/22 23:05 94 H 20 99 10/13/22 19:59 97.5 F 94 H 27 H 162/85 94 L 10/13/22 18:37 94 H 20 94 L 10/13/22 15:52 96.9 F 87 18 144/86 98 10/13/22 15:13 96 H 18 95 10/13/22 11:56 96.1 F 101 H 18 135/82 95 10/13/22 11:40 94 H 24 97 10/13/22 07:38 96.9 F 91 H 17 161/93 99 10/13/22 07:25 91 H 22 99 Pain Assessment - Last Documented Pain Intensity 0 Intake and Output: Intake & Output 10/11/22 10/12/22 10/13/22 10/14/22 11:59 11:59 11:59 11:59 Intake Total 9880 455 7057 1176 Output Total 2650 1750 2200 1903 Balance -1130 -910 -680 -724 Weight 54.9 kg Lab Results: Lab Results-Last 24 Hours 10/13/22 10/13/22 10/14/22 Range/Units 06:02 11:48 05:17 WBC 22.2 H (4.0-10.5) x10^3/uL RBC 3.69 L (4.1-5.4) x10^6/uL Hgb 10.6 L (12.0-16.0) g/dL Hct 34.9 L (35-47) % MCV 94.6 (78-100) fL MCH 28.7 (26-32) pg MCHC 30.4 L (32-36) g/dL RDW 14.5 H (11.5-14.0) % Plt Count 283 (150-450) x10^3/uL MPV 10.8 (7.5-11.0) fL Gran % 89.7 H (36.0-66.0) % Immature Gran % (Auto) 1.2 H (0.00-0.4) % Nucleat RBC Rel Count 0.0 (0.00-0.1) % Eos # (Auto) 0 (0-0.5) x10^3/uL Immature Gran # (Auto) 0.26 H (0.00-0.03) x10^3u/L Absolute Lymphs (auto) 0.51 L (1.0-4.6) x10^3/uL Absolute Monos (auto) 1.46 H (0.0-1.3) x10^3/uL Absolute Nucleated RBC 0.00 (0.00-0.01) x10^3u/L Lymphocytes % 2.3 L (24.0-44.0) % Monocytes % 6.6 (0.0-12.0) % Eosinophils % 0.0 (0.00-5.0) % Basophils % 0.2 (0.0-0.4) % Absolute Granulocytes 19.95 H (1.4-6.9) x10^3/uL Basophils # 0.05 (0-0.4) x10^3/uL Sodium (137-145) mmol/L Potassium (3.5-5.1) mmol/L Chloride (98-107) mmol/L Carbon Dioxide (22-30) mmol/L Anion Gap (5-15) MEQ/L BUN (7-17) mg/dL Creatinine (0.52-1.04) mg/dL Estimated GFR ML/MIN Glucose (74-106) mg/dL Calcium (8.4-10.2) mg/dL Total Bilirubin (0.2-1.3) mg/dL AST (14-36) U/L ALT (0-35) U/L Alkaline Phosphatase (38-126) U/L Serum Total Protein (6.3-8.2) g/dL Albumin (3.5-5.0) g/dL Urine Color [place] A (Yellow) Urine Appearance Clear (Clear) Urine pH 6.0 (4.6-8.0) Ur Specific [place] 1.015 (1.005-1.030) Urine Protein 30 (Negative) Urine Glucose (UA) Negative (Negative) mg/dL Urine Ketones Negative (Negative) Urine Blood Large A (Negative) Urine Nitrite Negative (Negative) Urine Bilirubin Negative (Negative) Urine Urobilinogen 0.2 (0.2) mg/dL Ur Leukocyte Esterase Small A (Negative) U Hyaline Cast (Auto) 3-5 A (0-2) /LPF Urine Microscopic RBC >100 A (0-5) /HPF Urine Microscopic WBC 6-10 A (0-5) /HPF Ur Epithelial Cells None Seen (None Seen) /HPF Urine Bacteria None Seen (None Seen) /HPF Urine Culture Reflexed YES (NO) Theophylline (10-20) ug/mL Slides for Path Review YES 10/14/22 10/14/22 Range/Units 05:17 05:17 WBC (4.0-10.5) x10^3/uL RBC (4.1-5.4) x10^6/uL Hgb (12.0-16.0) g/dL Hct (35-47) % MCV (78-100) fL MCH (26-32) pg MCHC (32-36) g/dL RDW (11.5-14.0) % Plt Count (150-450) x10^3/uL MPV (7.5-11.0) fL Gran % (36.0-66.0) % Immature Gran % (Auto) (0.00-0.4) % Nucleat RBC Rel Count (0.00-0.1) % Eos # (Auto) (0-0.5) x10^3/uL Immature Gran # (Auto) (0.00-0.03) x10^3u/L Absolute Lymphs (auto) (1.0-4.6) x10^3/uL Absolute Monos (auto) (0.0-1.3) x10^3/uL Absolute Nucleated RBC (0.00-0.01) x10^3u/L Lymphocytes % (24.0-44.0) % Monocytes % (0.0-12.0) % Eosinophils % (0.00-5.0) % Basophils % (0.0-0.4) % Absolute Granulocytes (1.4-6.9) x10^3/uL Basophils # (0-0.4) x10^3/uL Sodium 141 (137-145) mmol/L Potassium 3.9 (3.5-5.1) mmol/L Chloride 91 L (98-107) mmol/L Carbon Dioxide 43 H (22-30) mmol/L Anion Gap 10.9 (5-15) MEQ/L BUN 38 H (7-17) mg/dL Creatinine 0.62 (0.52-1.04) mg/dL Estimated GFR > 60.0 ML/MIN Glucose 154 H (74-106) mg/dL Calcium 7.9 L (8.4-10.2) mg/dL Total Bilirubin 0.70 (0.2-1.3) mg/dL AST 32 (14-36) U/L ALT 27 (0-35) U/L Alkaline Phosphatase 68 (38-126) U/L Serum Total Protein 6.0 L (6.3-8.2) g/dL Albumin 3.7 (3.5-5.0) g/dL Urine Color (Yellow) Urine Appearance (Clear) Urine pH (4.6-8.0) Ur Specific [place] (1.005-1.030) Urine Protein (Negative) Urine Glucose (UA) (Negative) mg/dL Urine Ketones (Negative) Urine Blood (Negative) Urine Nitrite (Negative) Urine Bilirubin (Negative) Urine Urobilinogen (0.2) mg/dL Ur Leukocyte Esterase (Negative) U Hyaline Cast (Auto) (0-2) /LPF Urine Microscopic RBC (0-5) /HPF Urine Microscopic WBC (0-5) /HPF Ur Epithelial Cells (None Seen) /HPF Urine Bacteria (None Seen) /HPF Urine Culture Reflexed (NO) Theophylline 3.9 L (10-20) ug/mL Slides for Path Review Radiology Exams: Radiology Procedures Category Date Time Status CHEST 2 VIEWS (PA AND LAT) Routine Exams 10/12/22 08:00 Completed Multi-Disciplinary Progress Notes: Multi-Disciplinary Progress Notes 10/13/22 10:59 Case Management Note by Carlie Wu NO CHANGE IN DC PLANS AT THIS TIME Initialized on 10/13/22 10:59 - END OF NOTE Assessment/Plan (1) Acute exacerbation of chronic obstructive airways disease Current Visit: Yes Status: Acute Assessment & Plan: 72 y/o F with severe emphysema, on 4L at home, p/w COPD exacerbation with some contribution of pneumonia. CT Chest shows severe emphysematous changes, and patient with persistent severe dyspnea, impaired air movement, difficulty speaking, and tripod positioning while breathing. She declined use of BiPAP. - Continue methylprednisone [address] Hien Richards - Spirivia - Continue Mucinex -Dr. Heredia has started aminophylline -Patient placed on BIPAP Code(s): J44.1 - CHRONIC OBSTRUCTIVE PULMONARY DISEASE W (ACUTE) EXACERBATION (2) Pneumonia Current Visit: Yes Status: Acute Assessment & Plan: Rocephin, Zithromax - Chest XR: 10/09 Nonacute chest with chronic features - CT chest: 10/09 reviewed with findings of: 1. Emphysematous lungs with mild centriacinar emphysema in both lower lobes. There is hyperinflation of the left lung with trans mediastinal herniation. 2. Small focal consolidation is seen in the left lower lobe SE 3 image #31. 3. No soliatry pulmonary nodule or definite lymphadenopathy to suggest metastases. 4. Marked degenerative changes of the thoracic spine with kyphotic deformity and compression fracture -Repeat CXR tomorrow 10/12: -CXR less inflated and grossly unchanged again demonstrating COPD, mild bibasilar subsegmental atelectasis/scarring, and right lung suture material/surgical clips. Heart not enlarged again with tortuous descending aorta. No new/acute abnormalities. -D/c zithromax, continue rocephin due to questionable UTI Code(s): J18.9 - PNEUMONIA, UNSPECIFIED ORGANISM (3) UTI (urinary tract infection) Current Visit: Yes Status: Acute Assessment & Plan: -UA suspicious for UTI, will treat empirically with Rocephin pending culture -D/C F/C, may replace with new F/C need new urine once cathed 10/14: -u/a collected 10/13 suspicious for infection, pending culture, continue on rocephin Code(s): N39.0 - URINARY TRACT INFECTION, SITE NOT SPECIFIED (4) Back pain, acute Current Visit: No Status: Acute Qualifiers: Back pain location: low back pain Assessment & Plan: - Degenerative changes as seen per CT - d/c frida, add norco Code(s): M54.9 - DORSALGIA, UNSPECIFIED (5) CHF (congestive heart failure) Current Visit: No Status: Acute Qualifiers: Heart failure type: systolic Heart failure chronicity: acute on chronic Qualified Code(s): I50.23 - Acute on chronic systolic (congestive) heart failure Assessment & Plan: - Chronic, no recent echo -Strict I&O -Monitor renal/lytes with goal K>4, MG >2 -BNP at 1080 - Continue Lasix 80mg BID, add one time dose of IV lasix 40mg -Repeat BNP tomorrow 10/12: -BNP at 1920, may be secondary to COPD exacerbation, does not appear to be in exacerbation, no noted edema on exam 10/14: -Lasix changed from daily dose to IV lasix 40mg bid Code(s): I50.9 - HEART FAILURE, UNSPECIFIED
[2022-10-14] MEDS: solu-MEDROL IV SCH (07:18)
[2022-10-14] MEDS: Aminophylline 500 MG/20 ML*** 500 MG in Sodium Chloride 0.9% 500 ML 480 ML IV SCH ×2 (07:20→18:43)
[2022-10-14] MEDS: Spiriva 18 Mcg/Cap Inhaler IH SCH (07:27)
[2022-10-14 07:36] LABS: Slide Review 1 YES
[2022-10-14] MEDS: Acidophilus TABLET PO SCH (08:46)
[2022-10-14] MEDS: NITRO-BID PO SCH (08:46)
[2022-10-14] MEDS: Naprosyn 500 MG PO PRN (08:46)
[2022-10-14] MEDS: MAG-OX 400 PO SCH (08:46)
[2022-10-14] MEDS: COREG 12.5 MG PO SCH ×2 (08:46→22:41)
[2022-10-14] MEDS: Mucinex 600MG ER Tabs PO SCH ×2 (08:46→22:41)
[2022-10-14] MEDS: Klor Con PO SCH ×2 (08:46→22:38)
[2022-10-14] MEDS: ROCEPHIN 1 Gm-D5w 50 ml Bag** 1 G/50 ML IVPB IV SCH (08:47)
[2022-10-14] MEDS: ECOTRIN 81 MG PO SCH (08:47)
[2022-10-14] MEDS: solu-MEDROL 40 MG, Sterile H2O 10 ml 1 ML IV SCH ×6 (08:47→22:39)
[2022-10-14] MEDS ORDERED: HYLENEX 150 UNITS INJECTION SQ ONE (10:09)
[2022-10-14] MEDS: xanAX 0.25 MG PO PRN ×2 (11:23→17:44)
[2022-10-14] MEDS: NORCO 5/325 MG PO PRN ×3 (11:23→22:37)
--- NOTE | 2022-10-14 11:27 | CONS ---
CONSULT DATE: 10/13/2022 HISTORY OF PRESENT ILLNESS: Ms. Deleon is a 72 year-old woman with history of end-stage chronic obstructive pulmonary disease, well known to me, who has [facility]. The patient has been getting progressively short of breath for about 5 days before this admission. She presented to the Emergency Room with worsening shortness of breath and after initial evaluation, has been hospitalized since 10/09/2022. The patient is being treated with IV antibiotics, steroids, bronchodilators, and continuation of home medications. She does report marginal clinical improvement. However, still continues to have audible wheezing. She has cough which has been productive of minimal expectoration. She reports generalized chest pain from coughing. PAST MEDICAL HISTORY: Positive for history of chronic obstructive pulmonary disease, prior history of lung cancer, osteopenia, hypoxemia, recurrent bronchitis. PAST SURGICAL HISTORY: She has had hysterectomy in , rectum reconstruction, bladder reconstruction, right knee surgery, back surgery, right hand surgery, and bronchoscopy. PERSONAL AND SOCIAL HISTORY: Patient is a former smoker, quit smoking in 2006. She lives with family. ALLERGIES: NOTED. CURRENT MEDICATIONS: Reviewed. PHYSICAL EXAMINATION: Elderly, frail woman appears tachypneic at rest. VITAL SIGNS: Noted. HEENT: Normocephalic. Oral exam - She is edentulous. NECK: Supple. CVS: 1st and 2nd heart sounds with mild tachycardia. RESPIRATORY: Shows significantly increased AP diameter of chest. Breath sounds are significantly diminished. Bilateral fairly diffuse rhonchi are heard. ABDOMEN: Soft. EXTREMITIES: No significant edema is noted. Apparently, patient did have edema on admission. LABORATORY DATA: Radiology tests were reviewed. Cultures remain negative. WBC is 16.4. CT chest on 10/09/2022 showed emphysematous lungs with centriacinar emphysema in lower lobes, hyperinflation, consolidation of left lower lobe, and degenerative changes of spine. ASSESSMENT: This is a 72 year-old woman admitted with: 1. LEFT LOWER LOBE COMMUNITY ACQUIRED PNEUMONIA. 2. CHRONIC OBSTRUCTIVE PULMONARY DISEASE WITH ACUTE EXACERBATION. 3. CHRONIC HYPOXIC RESPIRATORY FAILURE. 4. PRIOR HISTORY OF LUNG CANCER IN REMISSION. 5. DEGENERATIVE JOINT DISEASE OF THORACIC SPINE. RECOMMENDATIONS: 1. Continue present treatment. 2. Continue IV steroids. 3. Continue bronchodilators. Will benefit from short course of IV aminophylline while monitoring heart rate. 4. Patient still has significant clinical bronchospasm. May require longer length of stay along with possible rehab given her debilitation. Will follow during this stay. Will be available as needed. Thank you for allowing me to participate in the care of this patient.
[2022-10-14] MEDS ORDERED: Xylocaine-Mpf 2% 5 Ml Vial ONE (12:20)
--- NOTE | 2022-10-14 16:13 | PROG NOTE ---
DATE: 10/14/2022 Events noted. Patient reports some clinical improvement. Was started on aminophylline drip, although is having difficulty with IV access. Voices no new complaints. VITAL SIGNS NOTED. HEENT: Normocephalic. Oral exam limited. Edentulous. NECK: Supple. CVS: 1st and 2nd heart sounds normal, regular rhythm. RESPIRATORY: Shows increase in AP diameter with diminished breath sounds. Scattered rhonchi are heard. ABDOMEN: Soft. EXTREMITIES: No edema is noted. LABS REVIEWED. ASSESSMENT: 72 year-old woman admitted with: 1. LEFT LOWER LOBE COMMUNITY ACQUIRED PNEUMONIA. 2. END-STAGE CHRONIC OBSTRUCTIVE PULMONARY DISEASE WITH EXACERBATION. 3. CHRONIC HYPOXIC RESPIRATORY FAILURE. 4. PRIOR HISTORY OF LUNG CANCER. 5. DEGENERATIVE JOINT DISEASE. RECOMMENDATIONS: 1. Continue present treatment. 2. Patient will benefit from midline given need for IV medications and lack of adequate peripheral IV access. 3. Continue aminophylline drip for at least 48 hours to gain maximum benefit. 4. Gradual steroid taper. 5. Continue antibiotics. 6. Follow-up chest x-ray and other supportive care.
[2022-10-14] MEDS: ZOCOR 20MG PO SCH (22:38)
[2022-10-14] MEDS: Ativan 2 MG/1 ML VIAL IV PRN (22:38)
[2022-10-15] MEDS: DUONEB 0.5-3 MG/3 ml Neb IH SCH ×7 (03:50→22:34)
[2022-10-15] MEDS: Ativan 2 MG/1 ML VIAL IV PRN ×5 (04:20→21:58)
[2022-10-15 05:13] LABS: Absolute Neutrophil Ct (ANC) 19.76 x10^3/uL (1.4-6.9); BASOPHIL % 0.2 % (0.0-0.4); Basophil (Absolute #) 0.04 x10^3/uL (0-0.4); Eosinophil (Absolute #) 0 x10^3/uL (0-0.5); Hematocrit 31.3 % (35-47); Hemoglobin 9.6 g/dL (12.0-16.0); IMMATURE GRAN # 0.29 x10^3u/L (0.00-0.03); IMMATURE GRAN % 1.3 % (0.00-0.4); Lymphocyte (Absolute #) 0.53 x10^3/uL (1.0-4.6); Lymphocytes % 2.4 % (24.0-44.0); Mean Cell Volume 94.3 fL (78-100); Mean Corpuscular Hemoglobin 28.9 pg (26-32); Mean Corpuscular Hgb Concent. 30.7 g/dL (32-36); Mean Platelet Volume 10.5 fL (7.5-11.0); Monocyte (Absolute #) 1.16 x10^3/uL (0.0-1.3); Monocytes % 5.3 % (0.0-12.0); Neutrophil % 90.8 % (36.0-66.0); Platelet Count 243 x10^3/uL (150-450); Red Blood Count 3.32 x10^6/uL (4.1-5.4); Red Cell Distribution Width 14.1 % (11.5-14.0); White Blood Count 21.8 x10^3/uL (4.0-10.5)
[2022-10-15 05:27] LABS: ALBUMIN 3.4 g/dL (3.5-5.0); ALKALINE PHOSPHATASE 63 U/L (38-126); BLOOD UREA NITROGEN 35 mg/dL (7-17); CHLORIDE 90 mmol/L (98-107); Calcium 8.3 mg/dL (8.4-10.2); Creatinine 1 0.78 mg/dL (0.52-1.04); EST GLOMERULAR FILTRATION RATE > 60.0 ML/MIN; Glucose 144 mg/dL (74-106); Potassium 3.7 mmol/L (3.5-5.1); SGOT/AST 26 U/L (14-36); SGPT/ALT 25 U/L (0-35); SODIUM 138 mmol/L (137-145); Total Protein 5.6 g/dL (6.3-8.2)
[2022-10-15 05:35] LABS: Carbon Dioxide 41 mmol/L (22-30)
--- NOTE | 2022-10-15 05:47 | PCM.NOTE ---
Date and Time: 10/15/22 0177 Subjective Assessment: Ms. 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 CT imaging of the chest showing severe emphysema and degenerative changes of the thoracic spine. Patient continues with persistent dyspnea. Patient endorses continued shortness of breath and wheezing. Additionally the patient was noted with blood in her Treadwell bag. U/A suspicious for infection. Order placed for F/C to be removed and replaced. Patient started on Rocephin, urine culture showing no growth to date. Elevated BNP, IV lasix daily. Seen by Dr. Stanford started on aminophylline, solumedrol tapered to 40mg Q8H. Patient with persistent severe dyspnea, impaired air movement since yesterday, difficulty speaking, and tripod positioning while breathing. Placed on BIPAP. Patient was able to tolerate BIPAP for a total of 8 hours last night, but has been refusing. Lung sounds diminished on auscultation. Goals of care discussed with patient and the importance of the BIPAP and the possibility of intubation as patient is declining, refusing BIPAP, and remains a full code. Patient requesting to speak with weighmaster lead before deciding on code status but for now has agreed to go back on the BIPAP. Endorses that she is feeling worse today, shortness of breath and fatigue have increased. - Review of Systems Constitutional: No Symptoms, Fatigue Eyes: No Symptoms Ears, Nose, & Throat: No Symptoms Respiratory: Cough, Orthopnea, Short Of Breath, Wheezing Cardiac: No Symptoms Abdominal/Gastrointestinal: No Symptoms Genitourinary Symptoms: No Symptoms, Other (FC) Musculoskeletal: Back Pain Skin: Other (scattered bruising from multiple blood draws/IV) Psychological: Anxiety Objective Exam General Appearance: moderate distress Neurologic Exam: alert, oriented x 3 Skin Exam: pale Eye Exam: PERRL Respiratory Exam: respiratory distress, diminished breath sounds, wheezing Cardiovascular Exam: regular rate/rhythm Gastrointestinal/Abdomen Exam: soft, normal bowel sounds Back Exam: normal inspection OBJECTIVE DATA Vital Signs: Vital Signs - 24 hr Temp Pulse Resp BP BP Pulse Ox 10/15/22 03:57 87 15 95 10/15/22 03:49 79 13 10/14/22 23:22 95 H 16 97 10/14/22 23:19 97.8 F 95 H 23 140/84 99 10/14/22 22:38 90 23 140/84 10/14/22 20:43 87 18 97 10/14/22 20:00 97.8 F 95 H 19 143/84 94 L 10/14/22 19:54 97.8 F 95 H 19 143/84 94 L 10/14/22 16:00 96.2 F 92 H 24 166/94 95 10/14/22 15:21 88 26 H 97 10/14/22 10:59 96.6 F 88 28 H 139/99 97 10/14/22 10:54 88 26 H 97 10/14/22 07:28 96 H 22 99 10/14/22 07:13 97.1 F 95 H 20 141/92 95 Pain Assessment - Last Documented Pain Intensity 0 Pain Scale Used 0-10 Pain Scale Intake and Output: Intake & Output 10/12/22 10/13/22 10/14/22 10/15/22 11:59 11:59 11:59 11:59 Intake Total 840 1520 1236 1013 Output Total 1750 2200 1900 2450 Balance -826 -127 -985 -6374 Weight 54.9 kg Lab Results: Lab Results-Last 24 Hours 10/14/22 10/14/22 10/14/22 Range/Units 05:17 05:17 05:17 WBC 22.2 H (4.0-10.5) x10^3/uL RBC 3.69 L (4.1-5.4) x10^6/uL Hgb 10.6 L (12.0-16.0) g/dL Hct 34.9 L (35-47) % MCV 94.6 (78-100) fL MCH 28.7 (26-32) pg MCHC 30.4 L (32-36) g/dL RDW 14.5 H (11.5-14.0) % Plt Count 283 (150-450) x10^3/uL MPV 10.8 (7.5-11.0) fL Gran % 89.7 H (36.0-66.0) % Immature Gran % (Auto) 1.2 H (0.00-0.4) % Nucleat RBC Rel Count 0.0 (0.00-0.1) % Eos # (Auto) 0 (0-0.5) x10^3/uL Immature Gran # (Auto) 0.26 H (0.00-0.03) x10^3u/L Absolute Lymphs (auto) 0.51 L (1.0-4.6) x10^3/uL Absolute Monos (auto) 1.46 H (0.0-1.3) x10^3/uL Absolute Nucleated RBC 0.00 (0.00-0.01) x10^3u/L Lymphocytes % 2.3 L (24.0-44.0) % Monocytes % 6.6 (0.0-12.0) % Eosinophils % 0.0 (0.00-5.0) % Basophils % 0.2 (0.0-0.4) % Absolute Granulocytes 19.95 H (1.4-6.9) x10^3/uL Basophils # 0.05 (0-0.4) x10^3/uL Sodium 141 (137-145) mmol/L Potassium 3.9 (3.5-5.1) mmol/L Chloride 91 L (98-107) mmol/L Carbon Dioxide 43 H (22-30) mmol/L Anion Gap 10.9 (5-15) MEQ/L BUN 38 H (7-17) mg/dL Creatinine 0.62 (0.52-1.04) mg/dL Estimated GFR > 60.0 ML/MIN Glucose 154 H (74-106) mg/dL Calcium 7.9 L (8.4-10.2) mg/dL Total Bilirubin 0.70 (0.2-1.3) mg/dL AST 32 (14-36) U/L ALT 27 (0-35) U/L Alkaline Phosphatase 68 (38-126) U/L Serum Total Protein 6.0 L (6.3-8.2) g/dL Albumin 3.7 (3.5-5.0) g/dL Theophylline 3.9 L (10-20) ug/mL Slides for Path Review YES 08/25/23 08/25/23 Range/Units 04:35 04:35 WBC 21.8 H (4.0-10.5) x10^3/uL RBC 3.32 L (4.1-5.4) x10^6/uL Hgb 9.6 L (12.0-16.0) g/dL Hct 31.3 L (35-47) % MCV 94.3 (78-100) fL MCH 28.9 (26-32) pg MCHC 30.7 L (32-36) g/dL RDW 14.1 H (11.5-14.0) % Plt Count 243 (150-450) x10^3/uL MPV 10.5 (7.5-11.0) fL Gran % 90.8 H (36.0-66.0) % Immature Gran % (Auto) 1.3 H (0.00-0.4) % Nucleat RBC Rel Count 0.0 (0.00-0.1) % Eos # (Auto) 0 (0-0.5) x10^3/uL Immature Gran # (Auto) 0.29 H (0.00-0.03) x10^3u/L Absolute Lymphs (auto) 0.53 L (1.0-4.6) x10^3/uL Absolute Monos (auto) 1.16 (0.0-1.3) x10^3/uL Absolute Nucleated RBC 0.00 (0.00-0.01) x10^3u/L Lymphocytes % 2.4 L (24.0-44.0) % Monocytes % 5.3 (0.0-12.0) % Eosinophils % 0.0 (0.00-5.0) % Basophils % 0.2 (0.0-0.4) % Absolute Granulocytes 19.76 H (1.4-6.9) x10^3/uL Basophils # 0.04 (0-0.4) x10^3/uL Sodium 138 (137-145) mmol/L Potassium 3.7 (3.5-5.1) mmol/L Chloride 90 L (98-107) mmol/L Carbon Dioxide 41 H (22-30) mmol/L Anion Gap Pending (5-15) MEQ/L BUN 35 H (7-17) mg/dL Creatinine 0.78 (0.52-1.04) mg/dL Estimated GFR > 60.0 ML/MIN Glucose 144 H (74-106) mg/dL Calcium 8.3 L (8.4-10.2) mg/dL Total Bilirubin 0.70 (0.2-1.3) mg/dL AST 26 (14-36) U/L ALT 25 (0-35) U/L Alkaline Phosphatase 63 (38-126) U/L Serum Total Protein 5.6 L (6.3-8.2) g/dL Albumin 3.4 L (3.5-5.0) g/dL Theophylline (10-20) ug/mL Slides for Path Review Multi-Disciplinary Progress Notes: Multi-Disciplinary Progress Notes 10/15/22 04:10 Respiratory Note by Deep Villeda AROUND 0100 PT WOKE UP AND STARTED MESSING WITH HER MASK AND NURSING ATTEMPTED TO PLACE IT BACK ON HER. I WAS DRAWING AN ABG IN ANOTHER PTS RM AT THE TIME AND NURSING STATED THAT THE STRAPS HAD COME UNDONE AND IT WAS TOO CONFUSING TO PLACE BACK ON THE PT SO SHE PUT HER ON THE 3LPM O2 NC. WHEN I ENTERED PT RM FOR HER 0300 NEB TX, I PUT IT INLINE WITH THE BIPAP AND ATTEMPTED TO PLACE IT ON THE PT FACE SHE SAID SHE WOULD TRY IT. PT KEPT PUSHING IT AWAY AND STATING SHE DIDN'T KNOW IF SHE COULD DO IT AGAIN. I FINALLY PLACED PT BACK ON 3LPM NC AND GAVE THE TX VIA MOUTHPIECE. POST TX I PLACED PT BACK ON 3LPM O2 NC PT STATED SHE WAS UNSURE IF SHE COULD WEAR IT, HER MEDS HAD WORN OFF AND HER ANXIETY WAS TOO HIGH. Initialized on 10/15/22 04:10 - END OF NOTE 10/14/22 12:26 Case Management Note by Carlie Wu S/W PATIENT TO SEE IF SHE WOULD BE INTERESTED IN A REHAB STAY WHEN READY FOR DC- PATIENT AGAIN DECLINED. SHE FELT LIKE HER SIG OTHER WAS ENOUGH ASSISTANCE FOR HER AT HOME AT THIS TIME Initialized on 10/14/22 12:26 - END OF NOTE 10/14/22 09:40 Case Management Note by Carlie Wu NO CHANGE IN DC PLANS AT THIS TIME- WILL CONTINUE TO FOLLOW Initialized on 10/14/22 09:40 - END OF NOTE 10/14/22 09:01 Pharmacy Note by Juli,Sam Aminophylline drip at 20mg/hr. or 480mg per day. Max dose is 500mg/day per Marialuisa- Comp. Florencio level 3.9 after about 10 hours of infusion. Will check level again the next two days and adjust dose if needed. Initialized on 10/14/22 09:01 - END OF NOTE Assessment/Plan (1) Acute exacerbation of chronic obstructive airways disease Current Visit: Yes Status: Acute Assessment & Plan: 72 y/o F with severe emphysema, on 4L at home, p/w COPD exacerbation with some contribution of pneumonia. CT Chest shows severe emphysematous changes, and patient with persistent severe dyspnea, impaired air movement, difficulty speaking, and tripod positioning while breathing. She declined use of BiPAP, but for now is agreeing to be placed back on. - Continue methylprednisone [address] Hien Richards - Spirivia - Continue Mucinex -Dr. Heredia has started aminophylline -Patient placed on BIPAP -Consider CT Code(s): J44.1 - CHRONIC OBSTRUCTIVE PULMONARY DISEASE W (ACUTE) EXACERBATION (2) Pneumonia Current Visit: Yes Status: Acute Assessment & Plan: Rocephin, Zithromax - Chest XR: 10/09 Nonacute chest with chronic features - CT chest: 10/09 reviewed with findings of: 1. Emphysematous lungs with mild centriacinar emphysema in both lower lobes. There is hyperinflation of the left lung with trans mediastinal herniation. 2. Small focal consolidation is seen in the left lower lobe SE 3 image #31. 3. No soliatry pulmonary nodule or definite lymphadenopathy to suggest metastases. 4. Marked degenerative changes of the thoracic spine with kyphotic deformity and compression fracture -Repeat CXR tomorrow 10/12: -CXR less inflated and grossly unchanged again demonstrating COPD, mild bibasilar subsegmental atelectasis/scarring, and right lung suture material/surgical clips. Heart not enlarged again with tortuous descending aorta. No new/acute abnormalities. -D/c zithromax, continue rocephin due to questionable UTI Code(s): J18.9 - PNEUMONIA, UNSPECIFIED ORGANISM (3) UTI (urinary tract infection) Current Visit: Yes Status: Acute Assessment & Plan: -UA suspicious for UTI, will treat empirically with Rocephin pending culture -D/C F/C, may replace with new F/C need new urine once cathed 10/14: -u/a collected 10/13 suspicious for infection, pending culture, continue on rocephin 10/15/22: -U cult negative Code(s): N39.0 - URINARY TRACT INFECTION, SITE NOT SPECIFIED (4) Back pain, acute Current Visit: No Status: Acute Qualifiers: Back pain location: low back pain Assessment & Plan: - Degenerative changes as seen per CT - d/c naprosyn, add norco Code(s): M54.9 - DORSALGIA, UNSPECIFIED (5) CHF (congestive heart failure) Current Visit: No Status: Acute Qualifiers: Heart failure type: systolic Heart failure chronicity: acute on chronic Qualified Code(s): I50.23 - Acute on chronic systolic (congestive) heart failure Assessment & Plan: - Chronic, no recent echo -Strict I&O -Monitor renal/lytes with goal K>4, MG >2 -BNP at 1080 - Continue Lasix 80mg BID, add one time dose of IV lasix 40mg -Repeat BNP tomorrow 10/12: -BNP at 1920, may be secondary to COPD exacerbation, does not appear to be in exacerbation, no noted edema on exam 10/14: -Lasix changed from daily dose to IV lasix 40mg bid Code(s): I50.9 - HEART FAILURE, UNSPECIFIED
[2022-10-15] MEDS ORDERED: solu-MEDROL ONE (06:11)
[2022-10-15] MEDS: solu-MEDROL 40 MG, Sterile H2O 10 ml 1 ML IV SCH ×6 (06:29→21:57)
[2022-10-15] MEDS: MARY'S MOUTHWASH PO SCH ×3 (06:29→17:39)
[2022-10-15] MEDS: Lasix 40 MG/4 ML IV SCH ×3 (06:29→21:58)
[2022-10-15] MEDS: Spiriva 18 Mcg/Cap Inhaler IH SCH (07:05)
[2022-10-15] MEDS: Acidophilus TABLET PO SCH (08:49)
[2022-10-15] MEDS: Mucinex 600MG ER Tabs PO SCH ×2 (08:49→21:59)
[2022-10-15] MEDS: NITRO-BID PO SCH (08:50)
[2022-10-15] MEDS: ECOTRIN 81 MG PO SCH (08:50)
[2022-10-15] MEDS: MAG-OX 400 PO SCH (08:50)
[2022-10-15] MEDS: COREG 12.5 MG PO SCH ×2 (08:50→21:59)
[2022-10-15] MEDS: BUSPAR 5 MG PO SCH ×2 (08:50→21:59)
[2022-10-15] MEDS: Klor Con PO SCH ×2 (08:50→21:59)
[2022-10-15] MEDS: ROCEPHIN 1 Gm-D5w 50 ml Bag** 1 G/50 ML IVPB IV SCH (09:06)
[2022-10-15] MEDS: Artificial Tears 15 ML OP SCH ×4 (09:24→21:59)
[2022-10-15 11:26] LABS: A-aADO2 44; ABG HEMOGLOBIN 10.4; ABG POTASSIUM 3.8 (3.5-5.1); ARTERIAL BLD GAS O2 SATURATION 99.6 % (95-100); ARTERIAL BLOOD GAS BASE EXCESS 21.1 (-2.0-2.0); ARTERIAL BLOOD GAS FIO2 32 %; ARTERIAL BLOOD GAS PO2 104 mmHg (75-100); ARTERIAL BLOOD GAS pH 7.48 (7.35-7.45); CARBOXYHEMOGLOBIN 1.3 % THgb (0.0-6.9); HCO3- 47.7 (22-28); HGB O2 SAT 97.3 g/dF (94-100)
[2022-10-15 11:27] LABS: ABG SITE LEFT BRACHIAL; ARTERIAL BLOOD GAS PCO2 64 mmHg (35-45)
[2022-10-15 14:46] LABS: ANION GAP 3.3 MEQ/L (5-15)
[2022-10-15] MEDS: Aminophylline 500 MG/20 ML*** 500 MG in Sodium Chloride 0.9% 500 ML 480 ML IV SCH (20:05)
[2022-10-15] MEDS: ZOCOR 20MG PO SCH (21:59)
[2022-10-16] MEDS: MARY'S MOUTHWASH PO SCH ×2 (00:36→05:40)
[2022-10-16] MEDS: DUONEB 0.5-3 MG/3 ml Neb IH SCH ×6 (03:00→23:22)
[2022-10-16] MEDS: Ativan 2 MG/1 ML VIAL IV PRN ×4 (03:12→20:47)
[2022-10-16] MEDS: solu-MEDROL 40 MG, Sterile H2O 10 ml 1 ML IV SCH ×6 (05:39→22:56)
[2022-10-16] MEDS: Lasix 40 MG/4 ML IV SCH ×3 (05:39→19:55)
[2022-10-16 05:45] LABS: Hematocrit 33.3 % (35-47); Hemoglobin 10.5 g/dL (12.0-16.0); Mean Cell Volume 92.2 fL (78-100); Mean Corpuscular Hemoglobin 29.1 pg (26-32); Mean Corpuscular Hgb Concent. 31.5 g/dL (32-36); Mean Platelet Volume 10.3 fL (7.5-11.0); Platelet Count 306 x10^3/uL (150-450); Red Blood Count 3.61 x10^6/uL (4.1-5.4); Red Cell Distribution Width 14.4 % (11.5-14.0)
[2022-10-16 06:00] LABS: ALBUMIN 3.6 g/dL (3.5-5.0); ALKALINE PHOSPHATASE 67 U/L (38-126); BLOOD UREA NITROGEN 36 mg/dL (7-17); CHLORIDE 89 mmol/L (98-107); Creatinine 1 0.77 mg/dL (0.52-1.04); EST GLOMERULAR FILTRATION RATE > 60.0 ML/MIN; Glucose 167 mg/dL (74-106); Potassium 3.4 mmol/L (3.5-5.1); SGOT/AST 31 U/L (14-36); SGPT/ALT 26 U/L (0-35); SODIUM 139 mmol/L (137-145)
[2022-10-16 06:09] LABS: White Blood Count 25.5 x10^3/uL (4.0-10.5)
[2022-10-16 06:16] LABS: Carbon Dioxide 44 mmol/L (22-30)
[2022-10-16 06:17] LABS: ANION GAP 9.4 MEQ/L (5-15)
[2022-10-16 07:17] LABS: BAND 2 % (0.0-2.0); Lymphocytes 2 % (24-44); Monocyte 4 % (0.0-12.0); Neutrophils 92 % (36.0-66.0); Platelet Estimate NORMAL (NORMAL); Total Cells Counted 100; Toxic Granulation 1+
--- NOTE | 2022-10-16 07:26 | PCM.NOTE ---
Date and Time: 10/16/22721 Subjective Assessment: Ms. Deleon is a 72 year old female with a pmhx of COPD (4L oxygen at baseline), HTN, and CHF who presented with SOB, wheezing, and a SHOP ROUTER cough, admitted for COPD exacerbation and pneumonia being treated with high dose steroids (Solu-Medrol 40mg/IV), DuoNebs prn, Spiriva, zithromax, and rocephin. CT imaging of the chest showing severe emphysema and degenerative changes of the thoracic spine. Patient continues with persistent dyspnea. Patient endorses continued shortness of breath and wheezing. Additionally the patient was noted with blood in her Treadwell bag. U/A suspicious for infection. Order placed for F/C to be removed and replaced. Patient started on Rocephin, urine culture showing no growth to date. Elevated BNP, IV lasix daily. Seen by Dr. Stanford started on aminophylline, solumedrol tapered to 40mg Q8H. Patient with persistent severe dyspnea, impaired air movement since yesterday, difficulty speaking, and tripod positioning while breathing. Placed on BIPAP. Patient was able to tolerate BIPAP for a total of 8 hours last night, but has been refusing. Lung sounds diminished on auscultation. Goals of care discussed with patient multiple times and the importance of the BIPAP, as well as the possibility of intubation as patient is declining, refuses transfer to another facility. Patient was agreeable to try the BIPAP, but according to respiratory documentation was only able to tolerate it for less than 30 seconds with multiple attempts. Currently during interview she is tolerating it. Family is coming to discuss with patient goal of care. - Review of Systems Constitutional: Fatigue, Weakness Eyes: No Symptoms Ears, Nose, & Throat: No Symptoms Respiratory: Cough, Orthopnea, Short Of Breath, Wheezing Cardiac: Orthopnea Abdominal/Gastrointestinal: No Symptoms Genitourinary Symptoms: No Symptoms Musculoskeletal: Back Pain Skin: No Symptoms Neurological: No Symptoms Psychological: No Symptoms Endocrine: No Symptoms Hematologic/Lymphatic: No Symptoms Immunological/Allergic: No Symptoms Objective Exam General Appearance: mild distress Neurologic Exam: alert, oriented x 3, cooperative Skin Exam: pale Eye Exam: PERRL Ears, Nose, Throat Exam: normal ENT inspection Neck Exam: normal inspection Respiratory Exam: respiratory distress, diminished breath sounds, wheezing Cardiovascular Exam: normal heart sounds Gastrointestinal/Abdomen Exam: soft, normal bowel sounds Extremity Exam: normal inspection Back Exam: normal inspection OBJECTIVE DATA Vital Signs: Vital Signs - 24 hr Temp Pulse Resp BP Pulse Ox 10/16/22 06:31 110 H 18 97 10/16/22 04:00 97.1 F 114 H 21 153/94 91 L 10/16/22 03:12 122 H 24 10/16/22 03:00 113 H 24 97 10/16/22 00:00 97.3 F 100 H 16 154/92 10/15/22 22:34 122 H 28 H 95 10/15/22 21:58 120 H 20 10/15/22 20:00 97 F 104 H 18 131/97 100 10/15/22 18:21 116 H 28 H 95 10/15/22 15:41 98.4 F 113 H 40 H 137/85 94 L 10/15/22 15:16 110 H 28 H 96 10/15/22 11:37 97.8 F 101 H 20 127/84 97 10/15/22 11:27 101 H 20 97 Pain Assessment - Last Documented Pain Intensity 0 Pain Scale Used 0-10 Pain Scale Intake and Output: Intake & Output 10/13/22 10/14/22 10/15/22 10/16/22 11:59 11:59 11:59 11:59 Intake Total 1520 1236 1133 418 Output Total 2200 1900 2450 2700 [facility] -[phone] Weight 54.9 kg Lab Results: Lab Results-Last 24 Hours 10/15/22 10/15/22 10/15/22 Range/Units 04:35 07:15 11:20 WBC (4.0-10.5) x10^3/uL RBC (4.1-5.4) x10^6/uL Hgb (12.0-16.0) g/dL Hct (35-47) % MCV (78-100) fL MCH (26-32) pg MCHC (32-36) g/dL RDW (11.5-14.0) % Plt Count (150-450) x10^3/uL MPV (7.5-11.0) fL Segmented Neutrophils (36.0-66.0) % Band Neutrophils (0.0-2.0) % Lymphocytes (Manual) (24-44) % Monocytes (Manual) (0.0-12.0) % Toxic Granulation Platelet Estimate (NORMAL) Puncture Site LEFT BRACHIAL pCO2 64 H* (35-45) mmHg pO2 104 H (75-100) mmHg Base Excess 21.1 H (-2.0-2.0) O2 Saturation 97.3 (94-100) g/dF ABG pH 7.48 H (7.35-7.45) ABG HCO3 47.7 H* (22-28) ABG O2 Sat (Measured) 99.6 (95-100) % Colt Test NOT APPLICABLE A-a Gradient 44 a/A Ratio 0.70 Hemoglobin 10.4 Carboxyhemoglobin 1.3 (0.0-6.9) % THgb Methemoglobin 1.0 L (1.4-1.5) % Potassium 3.8 (3.5-5.1) Temperature 37.0 C POC O2 Flow Rate 32 % Sodium (137-145) mmol/L Chloride (98-107) mmol/L Carbon Dioxide (22-30) mmol/L Anion Gap 3.3 L (5-15) MEQ/L BUN (7-17) mg/dL Creatinine (0.52-1.04) mg/dL Estimated GFR ML/MIN Glucose (74-106) mg/dL Calcium (8.4-10.2) mg/dL Total Bilirubin (0.2-1.3) mg/dL AST (14-36) U/L ALT (0-35) U/L Alkaline Phosphatase (38-126) U/L Serum Total Protein (6.3-8.2) g/dL Albumin (3.5-5.0) g/dL Theophylline 10.6 (10-20) ug/mL 10/16/22 10/16/22 10/16/22 Range/Units 05:29 05:29 05:29 WBC 25.5 H* (4.0-10.5) x10^3/uL RBC 3.61 L (4.1-5.4) x10^6/uL Hgb 10.5 L (12.0-16.0) g/dL Hct 33.3 L (35-47) % MCV 92.2 (78-100) fL MCH 29.1 (26-32) pg MCHC 31.5 L (32-36) g/dL RDW 14.4 H (11.5-14.0) % Plt Count 306 (150-450) x10^3/uL MPV 10.3 (7.5-11.0) fL Segmented Neutrophils 92 H (36.0-66.0) % Band Neutrophils 2 (0.0-2.0) % Lymphocytes (Manual) 2 L (24-44) % Monocytes (Manual) 4 (0.0-12.0) % Toxic Granulation 1+ Platelet Estimate NORMAL (NORMAL) Puncture Site pCO2 (35-45) mmHg pO2 (75-100) mmHg Base Excess (-2.0-2.0) O2 Saturation (94-100) g/dF ABG pH (7.35-7.45) ABG HCO3 (22-28) ABG O2 Sat (Measured) (95-100) % Colt Test A-a Gradient a/A Ratio Hemoglobin Carboxyhemoglobin (0.0-6.9) % THgb Methemoglobin (1.4-1.5) % Potassium 3.4 L (3.5-5.1) Temperature C POC O2 Flow Rate % Sodium 139 (137-145) mmol/L Chloride 89 L (98-107) mmol/L Carbon Dioxide 44 H (22-30) mmol/L Anion Gap 9.4 (5-15) MEQ/L BUN 36 H (7-17) mg/dL Creatinine 0.77 (0.52-1.04) mg/dL Estimated GFR > 60.0 ML/MIN Glucose 167 H (74-106) mg/dL Calcium 9.0 (8.4-10.2) mg/dL Total Bilirubin 0.80 (0.2-1.3) mg/dL AST 31 (14-36) U/L ALT 26 (0-35) U/L Alkaline Phosphatase 67 (38-126) U/L Serum Total Protein 6.0 L (6.3-8.2) g/dL Albumin 3.6 (3.5-5.0) g/dL Theophylline 13.5 (10-20) ug/mL Multi-Disciplinary Progress Notes: Multi-Disciplinary Progress Notes 10/15/22 18:43 Respiratory Note by Holly Meredith Attempted to place patient on bipap at this time. 3 attempts were made but pt was unable to tolerate after less than 30 seconds each attempt. Pt refuses bipap at this time. Risks of not going on bipap were explained to patient, patient continues to refuse bipap at this time. Initialized on 10/15/22 18:43 - END OF NOTE 10/15/22 11:30 Case Management Note by Carlie Wu PATIENT BREATHING WORSE TODAY- PATIENT ADVISED TO GO ON BIPAP. WE DISCUSSED CODE STATUS AGAIN WITH PATIENT- SHE WOULD LIKE TO TALK WITH A TEAM DRIVER AND REQUESTED I CONTACT KAILEE PIERCE FOR HER. S/W KAILEE- HE REPORTED SHE WOULD BE IN TO SEE PATIENT SOON HE COULD. PATIENT DECLINED FOR ME TO CALL ANYONE ELSE FOR HER. NO FURTHER DC PLANNING DONE AT THIS ERIK PATIENT IS NOT READY FOR DC AT THIS TIME. CAN REASSESS NEEDS CLOSER TO TIME Initialized on 10/15/22 11:30 - END OF NOTE 10/15/22 09:14 Respiratory Note by Michelle Bustos DR. WAS CALLED EARLIER THIS AM AND UPDATED ON PT'S STATUS. HE DOESN'T WANT TO INCREASE THE STEROIDS AT THIS TIME DUE TO THE INCREASED BICARB. HE WANTS THE PT TO WEAR THE BIPAP MUCH POSSIBLE. PT AND SHOP ROUTER VENECIA AWARE OF THIS AND PT STATES SHE IS WILLING TO TRY THE BIPAP AGAIN. PT WAS EDUCATED ON WHAT COULD HAPPEN IF SHE DOESN'T WEAR THE BIPAP. PT UNDERSTANDS THIS AND IS GOING TO TALK TO HER PREACHER SOMETIME TODAY REGARDING HER CODE STATUS. SHE WANTS TO WAIT UNTIL SHE TALKS TO HIM BEFORE MAKING THE DECISION. Initialized on 10/15/22 09:14 - END OF NOTE Assessment/Plan (1) Acute exacerbation of chronic obstructive airways disease Current Visit: Yes Status: Acute Assessment & Plan: 72 y/o F with severe emphysema, on 4L at home, p/w COPD exacerbation with some contribution of pneumonia. CT Chest shows severe emphysematous changes, and patient with persistent severe dyspnea, impaired air movement, difficulty speaking, and tripod positioning while breathing. She declined use of BiPAP, but for now is agreeing to be placed back on. - Continue methylprednisone [address] Stanford - Duonebs - Spirivia - Continue Mucinex -Dr. Heredia has started aminophylline -Patient intermittently refusing bipap -Consider CT Code(s): J44.1 - CHRONIC OBSTRUCTIVE PULMONARY DISEASE W (ACUTE) EXACERBATION (2) Pneumonia Current Visit: Yes Status: Acute Assessment & Plan: Rocephin, Zithromax - Chest XR: 10/09 Nonacute chest with chronic features - CT chest: 10/09 reviewed with findings of: 1. Emphysematous lungs with mild centriacinar emphysema in both lower lobes. There is hyperinflation of the left lung with trans mediastinal herniation. 2. Small focal consolidation is seen in the left lower lobe SE 3 image #31. 3. No soliatry pulmonary nodule or definite lymphadenopathy to suggest metastases. 4. Marked degenerative changes of the thoracic spine with kyphotic deformity and compression fracture -Repeat CXR tomorrow 10/12: -CXR less inflated and grossly unchanged again demonstrating COPD, mild bibasilar subsegmental atelectasis/scarring, and right lung suture material/surgical clips. Heart not enlarged again with tortuous descending aorta. No new/acute abnormalities. -D/c zithromax, continue rocephin due to questionable UTI Code(s): J18.9 - PNEUMONIA, UNSPECIFIED ORGANISM (3) UTI (urinary tract infection) Current Visit: Yes Status: Acute Assessment & Plan: -UA suspicious for UTI, will treat empirically with Rocephin pending culture -D/C F/C, may replace with new F/C need new urine once cathed 10/14: -u/a collected 10/13 suspicious for infection, pending culture, continue on rocephin 10/15/22: -U cult negative Code(s): N39.0 - URINARY TRACT INFECTION, SITE NOT SPECIFIED (4) Back pain, acute Current Visit: No Status: Acute Qualifiers: Back pain location: low back pain Assessment & Plan: - Degenerative changes as seen per CT - d/c naprosyn, add norco Code(s): M54.9 - DORSALGIA, UNSPECIFIED (5) CHF (congestive heart failure) Current Visit: No Status: Acute Qualifiers: Heart failure type: systolic Heart failure chronicity: acute on chronic Qualified Code(s): I50.23 - Acute on chronic systolic (congestive) heart failure Assessment & Plan: - Chronic, no recent echo -Strict I&O -Monitor renal/lytes with goal K>4, MG >2 -BNP at 1080 - Continue Lasix 80mg BID, add one time dose of IV lasix 40mg -Repeat BNP tomorrow 10/12: -BNP at 1920, may be secondary to COPD exacerbation, does not appear to be in exacerbation, no noted edema on exam 10/14: -Lasix changed from daily dose to IV lasix 40mg bid Code(s): I50.9 - HEART FAILURE, UNSPECIFIED
[2022-10-16] MEDS: ROCEPHIN 1 Gm-D5w 50 ml Bag** 1 G/50 ML IVPB IV SCH (10:29)
[2022-10-16] MEDS: Acidophilus TABLET PO SCH (10:36)
[2022-10-16] MEDS: ECOTRIN 81 MG PO SCH (10:37)
[2022-10-16] MEDS: BUSPAR 5 MG PO SCH ×2 (10:37→22:56)
[2022-10-16] MEDS: Klor Con PO SCH ×2 (10:37→22:57)
[2022-10-16] MEDS: COREG 12.5 MG PO SCH ×2 (10:37→22:56)
[2022-10-16] MEDS: Artificial Tears 15 ML OP SCH ×4 (10:37→22:57)
[2022-10-16] MEDS: MAG-OX 400 PO SCH (10:37)
[2022-10-16] MEDS: NITRO-BID PO SCH (10:38)
[2022-10-16] MEDS: Mucinex 600MG ER Tabs PO SCH ×2 (10:38→22:56)
[2022-10-16] MEDS: Spiriva 18 Mcg/Cap Inhaler IH SCH (13:00)
[2022-10-16] MEDS: MARY'S MOUTHWASH PO PRN (16:47)
[2022-10-16] MEDS: ZOCOR 20MG PO SCH (22:57)
[2022-10-17] MEDS: DUONEB 0.5-3 MG/3 ml Neb IH SCH ×4 (02:58→16:11)
[2022-10-17] MEDS: Ativan 2 MG/1 ML VIAL IV PRN ×2 (04:04→09:13)
[2022-10-17] MEDS ORDERED: MORPHINE SULFATE 2 MG INJ IV ONE ×2 (04:29→05:38)
[2022-10-17] MEDS: solu-MEDROL 40 MG, Sterile H2O 10 ml 1 ML IV SCH ×2 (05:22)
[2022-10-17 05:31] LABS: Hematocrit 34.4 % (35-47); Hemoglobin 10.8 g/dL (12.0-16.0); Mean Corpuscular Hemoglobin 29.2 pg (26-32); Mean Corpuscular Hgb Concent. 31.4 g/dL (32-36); Mean Platelet Volume 10.5 fL (7.5-11.0); Platelet Count 337 x10^3/uL (150-450); Red Cell Distribution Width 14.5 % (11.5-14.0)
[2022-10-17 05:38] LABS: White Blood Count 28.6 x10^3/uL (4.0-10.5)
[2022-10-17 05:40] LABS: ALBUMIN 3.9 g/dL (3.5-5.0); ALKALINE PHOSPHATASE 70 U/L (38-126); BLOOD UREA NITROGEN 47 mg/dL (7-17); CHLORIDE 89 mmol/L (98-107); Calcium 8.8 mg/dL (8.4-10.2); Creatinine 1 0.85 mg/dL (0.52-1.04); EST GLOMERULAR FILTRATION RATE > 60.0 ML/MIN; Glucose 206 mg/dL (74-106); SGOT/AST 31 U/L (14-36); SGPT/ALT 25 U/L (0-35); SODIUM 141 mmol/L (137-145); Total Protein 6.4 g/dL (6.3-8.2)
[2022-10-17 05:51] LABS: ANION GAP 13 MEQ/L (5-15); Carbon Dioxide 43 mmol/L (22-30)
[2022-10-17 07:17] LABS: BAND 8 % (0.0-2.0); Lymphocytes 4 % (24-44); Monocyte 3 % (0.0-12.0); Neutrophils 85 % (36.0-66.0); Platelet Estimate NORMAL (NORMAL); Total Cells Counted 100
--- NOTE | 2022-10-17 08:08 | PCM.DS ---
Discharge Summary Date of Admission: 10/10/22 12:21 Date of Discharge: 10/17/22 Admitting Physician: MALIKA NEWBERRY MD Consults: Consults on Case 10/12/22 09:20 Consult Pulmonology ROUTINE Primary Care Provider: ALISA ROMO Allergies Allergies Tetanus Vaccines and Toxoid [Tetanus] Allergy (Severe, Verified 10/09/22 16:08) throat swelling Hospital Summary - Hospital Course Hospital Course: Ms. 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 CT imaging of the chest showing severe emphysema and degenerative changes of the thoracic spine. Patient continues with persistent dyspnea. Patient endorses continued shortness of breath and wheezing. Additionally the patient was noted with blood in her Treadwell bag. U/A suspicious for infection. Order placed for F/C to be removed and replaced. Patient started on Rocephin, urine culture showing no growth to date. Elevated BNP, IV lasix daily. Seen by Dr. Stanford started on aminophylline, solumedrol tapered to 40mg Q8H. Patient with persistent severe dyspnea, impaired air movement, difficulty speaking, and tripod positioning while breathing. Placed on BIPAP with minimal improvement. Goals of care discussed with patient multiple times and the importance of the BIPAP, as well as the possibility of i ntubation as patient is declining, initially refusing transfer to another facility but now agreeable. Wishes to remain a full code of multiple discussions regarding goals of care. Assessment/Plan (1) Acute exacerbation of chronic obstructive airways disease Current Visit: Yes Status: Acute Assessment & Plan: 72 y/o F with severe emphysema, on 4L at home, p/w COPD exacerbation with some c ontribution of pneumonia. CT Chest shows severe emphysematous changes, and patient with persistent severe dyspnea, impaired air movement, difficulty speaking, and tripod positioning while breathing. She declined use of BiPAP, but for now is agreeing to be placed back on. - Continue methylprednisone [address] Stanford - Duonebs - Spirivia - Continue Mucinex -Dr. Heredia has started aminophylline -Patient intermittently refusing bipap -Consider CT Code(s): J44.1 - CHRONIC OBSTRUCTIVE PULMONARY DISEASE W (ACUTE) EXACERBATION (2) Pneumonia Current Visit: Yes Status: Acute Assessment & Plan: Rocephin, Zithromax - Chest XR: 10/09 Nonacute chest with chronic features - CT chest: 10/09 reviewed with findings of: 1. Emphysematous lungs with mild centriacinar emphysema in both lower lobes. There is hyperinflation of the left lung with trans mediastinal herniation. 2. Small focal consolidation is seen in the left lower lobe SE 3 image #31. 3. No soliatry pulmonary nodule or definite lymphadenopathy to suggest metastases. 4. Marked degenerative changes of the thoracic spine with kyphotic deformity and compression fracture -Repeat CXR tomorrow 10/12: -CXR less inflated and grossly unchanged again demonstrating COPD, mild bibasilar subsegmental atelectasis/scarring, and right lung suture material/surgical clips. Heart not enlarged again with tortuous descending aorta. No new/acute abnormalities. -D/c zithromax, continue rocephin due to questionable UTI Code(s): J18.9 - PNEUMONIA, UNSPECIFIED ORGANISM (3) UTI (urinary tract infection) Current Visit: Yes Status: Acute Assessment & Plan: -UA suspicious for UTI, will treat empirically with Rocephin pending culture -D/C F/C, may replace with new F/C need new urine once cathed 10/14: -u/a collected 10/13 suspicious for infection, pending culture, continue on rocephin 10/15/22: -U cult negative Code(s): N39.0 - URINARY TRACT INFECTION, SITE NOT SPECIFIED (4) Back pain, acute Current Visit: No Status: Acute Qualifiers: Back pain location: low back pain Assessment & Plan: - Degenerative changes as seen per CT - d/c magda galicia norco Code(s): M54.9 - DORSALGIA, UNSPECIFIED (5) CHF (congestive heart failure) Current Visit: No Status: Acute Qualifiers: Heart failure type: systolic Heart failure chronicity: acute on chronic Qualified Code(s): I50.23 - Acute on chronic systolic (congestive) heart failure Assessment & Plan: - Chronic, no recent echo -Strict I&O -Monitor renal/lytes with goal K>4, MG >2 -BNP at 1080 - Continue Lasix 80mg BID, add one time dose of IV lasix 40mg -Repeat BNP tomorrow 10/12: -BNP at 1920, may be secondary to COPD exacerbation, does not appear to be in exacerbation, no noted edema on exam 10/14: -Lasix changed from daily dose to IV lasix 40mg bid - Vitals & Intake/Output Vital Signs: Vital Signs Temperature 97.8 F 10/17/22 07:06 Pulse Rate 111 H 10/17/22 07:06 Respiratory Rate 23 10/17/22 07:06 Blood Pressure 144/94 10/17/22 07:06 O2 Sat by Pulse Oximetry 92 L 10/17/22 07:06 Intake & Output: Intake & Output 10/14/22 10/15/22 10/16/22 10/17/22 11:59 11:59 11:59 11:59 Intake Total 1236 1133 418 575 Output Total 1900 2450 2700 2400 [facility] -[phone] - Lab Result Diagrams: 10/17/22 05:20 10/17/22 05:20 Lab Results-Last 24 Hrs: Lab Results-Last 24 Hours 10/17/22 10/17/22 Range/Units 05:20 05:20 WBC 28.6 H* (4.0-10.5) x10^3/uL RBC 3.70 L (4.1-5.4) x10^6/uL Hgb 10.8 L (12.0-16.0) g/dL Hct 34.4 L (35-47) % MCV 93.0 (78-100) fL MCH 29.2 (26-32) pg MCHC 31.4 L (32-36) g/dL RDW 14.5 H (11.5-14.0) % Plt Count 337 (150-450) x10^3/uL MPV 10.5 (7.5-11.0) fL Segmented Neutrophils 85 H (36.0-66.0) % Band Neutrophils 8 H (0.0-2.0) % Lymphocytes (Manual) 4 L (24-44) % Monocytes (Manual) 3 (0.0-12.0) % Platelet Estimate NORMAL (NORMAL) Sodium 141 (137-145) mmol/L Potassium 4.0 (3.5-5.1) mmol/L Chloride 89 L (98-107) mmol/L Carbon Dioxide 43 H (22-30) mmol/L Anion Gap 13 (5-15) MEQ/L BUN 47 H (7-17) mg/dL Creatinine 0.85 (0.52-1.04) mg/dL Estimated GFR > 60.0 ML/MIN Glucose 206 H (74-106) mg/dL Calcium 8.8 (8.4-10.2) mg/dL Total Bilirubin 0.90 (0.2-1.3) mg/dL AST 31 (14-36) U/L ALT 25 (0-35) U/L Alkaline Phosphatase 70 (38-126) U/L Serum Total Protein 6.4 (6.3-8.2) g/dL Albumin 3.9 (3.5-5.0) g/dL Micro Results-Entire Visit: Microbiology 10/13/22 11:48 Urine Culture - Final Urine, Void NO GROWTH 10/12/22 16:40 Urine Culture - Final Catherized NO GROWTH 10/09/22 16:20 Blood Culture - Final Blood 10/09/22 16:15 Blood Culture - Final Blood 10/09/22 21:33 Urine Culture - Final Catherized <10K NORMAL SKIN WILLIAM PROBABLE SKIN CONTAMINANT - Procedures and Test Procedures and Tests throughout Hospitalization: Therapy Orders & Screens 10/09/22 16:38 Respiratory Therapy Assessment DAILY Comment: 10/09/22 19:16 Oxygen Nasal Cannula 4 lpm Comment: Respiratory Therapy Consult ONCE Comment: Reason For Exam: 10/09/22 22:42 RT Screen per Nursing Assess ONCE Comment: Protocol Order Physician Instructions: Greater than 3 points order RT Admission Screen Reason For Exam: Triggered on Admission Diagnosis: copd exacerbation Diagnosis: copd exacerbation Pneumonia: Yes Home O2: Yes: 4L Asthma: No CHF: No Home CPAP/BIPAP: No Home Nebs/MDI: Yes Total Points: 13 10/10/22 13:52 Flutter Therapy UD Comment: Diagnosis: copd exacerbation 10/14/22 23:22 BiPap/CPAP ROUTINE Comment: Diagnosis: EXAC COPD, PNEUMONIA Discharge Exam General Appearance: severe distress Neurologic Exam: alert, oriented x 3 Eye Exam: PERRL Respiratory Exam: diminished breath sounds, accessory muscle use, wheezing Cardiovascular Exam: regular rate/rhythm, normal heart sounds Gastrointestinal/Abdomen Exam: soft, tenderness Pelvic Exam: deferred Rectal Exam: deferred Extremity Exam: normal inspection Skin Exam: pale Final Diagnosis/Problem List - Final Discharge Diagnosis/Problem (1) Acute exacerbation of chronic obstructive airways disease Current Visit: Yes Status: Acute Code(s): J44.1 - CHRONIC OBSTRUCTIVE PULMONARY DISEASE W (ACUTE) EXACERBATION (2) Pneumonia Current Visit: Yes Status: Acute Code(s): J18.9 - PNEUMONIA, UNSPECIFIED ORGANISM (3) UTI (urinary tract infection) Current Visit: Yes Status: Resolved Code(s): N39.0 - URINARY TRACT INFECTION, SITE NOT SPECIFIED (4) Back pain, acute Current Visit: No Status: Chronic Code(s): M54.9 - DORSALGIA, UNSPECIFIED (5) CHF (congestive heart failure) Current Visit: No Status: Chronic Code(s): I50.9 - HEART FAILURE, UNSPECIFIED - Discharge Disposition: DC TO OTHER HOSP Condition: Poor Prescriptions: New Lactobacillus Acidophilus [Acidophilus TABLET] 1 tab PO DAILY tablet Polyvinyl Alcohol Tears [Artificial Tears 15 ML] 1 ml OP QID Albuterol/Ipratropium 3ml Neb* [DUONEB 0.5-3 MG/3 ml Neb] 3 ml IH Q2HPRN PRN PRN Reason: Shortness Of Breath/Wheezing Enoxaparin Sodium [Enoxaparin Sodium] 40 mg SQ DAILY Furosemide 40 mg/4 ml [Lasix 40 MG/4 ML] 40 mg IV Q12H Guaifenesin 600 mg ER [Mucinex 600MG ER Tabs] 600 mg PO BID tablet Methylprednisolone Sod Suc 40M [solu-MEDROL] 40 mg IV Q8HT Tiotropium [place] Inhaler [Spiriva 18 Mcg/Cap Inhaler] 1 ea IH DAILY inhaler ALPRAZolam 1 MG [Xanax 1 mg] 1 mg PO HS PRN PRN tablet PRN Reason: Insomnia Continue Calcium Citrate/Vitamin D3 [Citracal + D Caplet] 2 each PO BID Atorvastatin Calcium [Lipitor] 40 mg PO HS Albuterol/Ipratropium 3ml Neb* [DUONEB 0.5-3 MG/3 ml Neb] 3 ml IH Q4H Albuterol Sulfate Mdi [ALBUTEROL/Proair Hfa MDI] 8.5 gm IH Q4HWA PRN PRN Reason: Shortness Of Breath Multivitamin [Multi-Vitamin Daily] 1 tab PO DAILY Tiotropium [place] [Spiriva] 18 mcg IH DAILY Cholecalciferol (Vitamin D3) [Vitamin D3] 50 mg PO DAILY Potassium Chloride Tab* [Klor Con] 10 meq PO BID Aspirin [Aspirin EC] 81 mg PO DAILY Zoledronic Acid/Mannitol&Water [Reclast 5 mg/100 ml Solution] 5 mg IV UD Magnesium Oxide [Magnesium] 250 mg PO DAILY Furosemide 80 mg PO BID Biotin 10,000 mcg PO DAILY Ascorbic Acid [Vitamin C] 1,000 mg PO DAILY Discontinued Prednisone 10 mg [Deltasone 10 mg] 10 mg PO DAILY Additional Instructions: IF YOU BECOME INTERESTED I PULMONARY REHAB- DISCUSS THIS OPTION WITH DR Adam STANFORD Follow up with: ALISA ROMO [Primary Care Provider] - 10/21/22 10:15 am ANNA STANFORD [ACTIVE STAFF] - 10/27/22 3:45 pm (at [facility])
[2022-10-17] MEDS: MARY'S MOUTHWASH PO PRN (08:12)
[2022-10-17] MEDS: MORPHINE SULFATE 2 MG INJ IV PRN ×2 (08:36→12:10)
[2022-10-17] MEDS: Lasix 40 MG/4 ML IV SCH (08:36)
[2022-10-17] MEDS: BUSPAR 5 MG PO SCH (09:24)
[2022-10-17] MEDS: Klor Con PO SCH (09:24)
[2022-10-17] MEDS: Acidophilus TABLET PO SCH (09:24)
[2022-10-17] MEDS: MAG-OX 400 PO SCH (09:24)
[2022-10-17] MEDS: Artificial Tears 15 ML OP SCH (09:24)
[2022-10-17] MEDS: Mucinex 600MG ER Tabs PO SCH (09:25)
[2022-10-17] MEDS: ECOTRIN 81 MG PO SCH (10:47)
[2022-10-17] MEDS: COREG 12.5 MG PO SCH (10:47)
[2022-10-17 11:36] VITALS: BP 136/98; TEMP 98.7
[2022-10-17] MEDS: Spiriva 18 Mcg/Cap Inhaler IH SCH (11:47)
[2022-10-17 12:33] VITALS: PULSE 111; RESP 28; O2SAT 98
== END 2022-10-17 13:51 | DRG 190 ==
LOC: ED 15:54 → MED SURG 20:54 → OBSVTOIN 10-10 12:21
PROVIDERS: ADMIT Student in an Organized Health Care Education/Training Program; ATTEND Student in an Organized Health Care Education/Training Program
DX: J44.1 Chronic obstructive pulmonary disease with (acute) exacerbation (principal); J18.9 Pneumonia, unspecified organism; N39.0 Urinary tract infection, site not specified; I11.0 Hypertensive heart disease with heart failure; I50.9 Heart failure, unspecified; M54.9 Dorsalgia, unspecified; E78.5 Hyperlipidemia, unspecified; H57.11 Ocular pain, right eye; M19.90 Unspecified osteoarthritis, unspecified site; Z85.118 Personal history of other malignant neoplasm of bronchus and lung; Z99.81 Dependence on supplemental oxygen; Z87.891 Personal history of nicotine dependence; Z79.899 Other long term (current) drug therapy; Z20.828 Contact with and (suspected) exposure to other viral communicable diseases
CPT/HCPCS: 0241U; 36000; 36410; 36415; 36600; 51702; 71045; 71046; 71250; 80053; 80198; 81001; 82375; 82803; 83605; 83880; 84484; 85025; 85027; 85610; 85730; 87040; 87086; 93005; 93041; 93268; 94002; 94003; 94640; 94667; 94668; 94760; 96365; 96374; 99100; 99285; 99291; G0378; Q3014; 96375; J0280; J0456; J0696; J1650; J1940; J2060; J2270; J2920; J2930; J3470; J7609; A9270-GY